=== PATIENT | female | born 1960 | race Caucasian/White ===

== ENCOUNTER 2023-09-25 09:49 | Outpatient (REF) | payer MEDICARE, SELFPAY ==
[2023-09-25 11:33] LABS: Erythrocyte Sedimentation Rate 30 MM/HR (0-20)
[2023-09-26 09:50] LABS: Lyme Abs Screen <0.90 index
[2023-09-26 13:28] LABS: Anti Nuclear Antibody Screen NEGATIVE (NEGATIVE)
== END 2023-09-25 09:50 | disposition home or self-care (01) ==
LOC: HO.LAB 09:49
PROVIDERS: Visit Provider Psychiatry & Neurology Neurology
DX: G93.49 Other encephalopathy (principal)
CPT/HCPCS: 36415; 85652; 86038; 86617; 86618

== ENCOUNTER → 2023-10-27 09:31 | Day surgery (SDC) | payer MEDICARE, SELFPAY ==
--- NOTE | ~2023-10-27 | FL_ITS ---
FLUOROSCOPIC GUIDED LUMBAR PUNCTURE INDICATION: Leukoencephalopathy TECHNIQUE: Risks and benefits and possible complications were discussed with the patient and the consent form was signed. Patient was placed prone on the fluoroscopy table. The back was prepped and draped in routine sterile fashion. Betadine was used as a skin antiseptic. Utilizing fluoroscopic guidance, the L4-5 interlaminar space was accessed with a 22 gauge Bhavesh spinal needle and clear CSF fluid obtained. Opening pressure was 7 cm H20. 8 cc of fluid was sent for analysis. The needle was removed without immediate complications. Total fluoroscopy time: 2.0 minutes min FL/FL guided lumbar puncture LP IMPRESSION: Successful fluoroscopic L4-L5 lumbar puncture This procedure was performed by Rafiq Lott PA-C and supervised by Dr. Roche.
[2023-10-27 09:45] VITALS: BMI 29.0
[2023-10-27 10:12] LABS: MANUAL DIFF FLAG NO
[2023-10-27 10:15] LABS: Basophils Absolute Auto 0.1 X10*3/uL (0.0-0.2); Basophils Percent Auto 0.5 % (0-2); Eosinophils Absolute Auto 0.1 X10*3/uL (0.0-0.4); Eosinophils Percent Auto 1.3 % (0-4); Hematocrit 40.5 % (37.0-47.0); Hemoglobin 13.8 g/dl (12.0-16.0); Imm Gran Abs Auto 0.03 X10*3/uL (0.00-0.03); Imm Gran Pct Auto 0.3 % (0.0-0.4); Lymphocytes Absolute Auto 2.9 X10*3/uL (1.2-4.9); Lymphocytes Percent Auto 30.8 % (20-40); Mean Corpuscular HGB Conc 34.1 g/dl (31.0-35.0); Mean Corpuscular Hemoglobin 32.1 pg (27.0-33.0); Mean Corpuscular Volume 94.2 fL (80.0-98.0); Mean Platelet Volume 9.9 fL (9.4-12.3); Monocytes Absolute Auto 0.6 X10*3/uL (0.1-1.2); Monocytes Percent Auto 6.1 % (2-11); Neutrophils Absolute Auto 5.8 x10*3/uL (2.0-8.3); Platelet Count 308 X10*3/uL (160-400); Red Cell Distribution Width 12.5 % (11.0-16.0); White Blood Count 9.5 X10*3/uL (4.8-10.8)
[2023-10-27 10:20] LABS: INTERNATIONAL NORM RATIO 0.9 (0.9-1.1); Prothrombin Time 11.2 SEC (11.1-13.3)
[2023-10-27 10:23] LABS: Partial Thromboplastin Time 30.7 SEC (26.0-36.8)
[2023-10-27 12:00] VITALS: BP 126/67; PULSE 92; RESP 17; TEMP 36.2; O2SAT 95
[2023-10-27 12:15] VITALS: BP 116/70; PULSE 87; RESP 18; O2SAT 97
[2023-10-27 12:30] VITALS: BP 115/68; PULSE 88; RESP 18; O2SAT 97
[2023-10-27 12:42] VITALS: BP 115/66; PULSE 100; RESP 18; TEMP 36.3; O2SAT 97
[2023-10-27 13:29] LABS: CSF Appearance Clear, Colorless; CSF Tube # 3
[2023-10-27 13:36] LABS: Glucose CSF 68 mg/dL; Total Protein CSF 41.8 mg/dL (15-45)
[2023-10-27 13:37] LABS: Appearance CSF HAZY; CSF Monos 24 %; CSF Tube # 1; Color CSF COLORLESS; Lymphocytes CSF 68 %; Neutrophils CSF 8 %; Red Blood Cell CSF 312 MM*3; White Blood Cell CSF 2 MM*3
[2023-10-27 13:41] LABS: Appearance CSF CLEAR; CSF Monos 8 %; CSF Tube # 4; Color CSF COLORLESS; Lymphocytes CSF 92 %; Red Blood Cell CSF 43 MM*3; White Blood Cell CSF 2 MM*3
[2023-10-28 12:02] LABS: Oligoclonal Serum Yes
[2023-10-31 22:14] LABS: Albumin 4.5 g/dL (3.6-5.1); Albumin, CSF 24.7 mg/dL (8.0-42.0); IgG 1180 mg/dL (600-1540); IgG Synthesis Rate -4.4 mg/24 h (-9.9-3.3); IgG, CSF 2.9 mg/dL (0.8-7.7)
[2023-11-08 19:53] LABS: Oligoclonal Banding Absent (Absent)
== END | disposition home or self-care (01) ==
PROVIDERS: Physician Assistant Surgical; Visit Provider Psychiatry & Neurology Neurology
PROC: 009U3ZZ Drainage of Spinal Canal, Percutaneous Approach (ICD-10-PCS; CPT 62270; principal; 2023-10-27 11:00)
DX: G93.49 Other encephalopathy (principal); R41.9 Unspecified symptoms and signs involving cognitive functions and awareness; G37.9 Demyelinating disease of central nervous system, unspecified
CPT/HCPCS: 36415; 62328; 82042; 82945; 83520; 83916; 84157; 85025; 85610; 85730; 87015; 87070; 87205; 89051

== ENCOUNTER → 2023-10-27 11:05 | Outpatient (BNV) | payer MEDICARE, SELFPAY | PROVIDERS: Visit Provider Physician Assistant Surgical | DX: G93.49 Other encephalopathy (principal) | CPT/HCPCS: 62328 ==

== ENCOUNTER 2025-02-17 09:58 | Outpatient (AMB) | payer MEDICARE, SELFPAY ==
--- NOTE | 2025-02-17 10:04 | A.OFFVIS_ITS ---
Intake Visit Reasons: 6 month Allergies celecoxib (From Celebrex) Allergy (Severe, Verified 10/27/23 09:56) Numbness nitrofurantoin (From Macrobid) Adverse Reaction (Intermediate, Verified 10/27/23 09:56) Gastrointestinal Upset HPI Comments Details: 65 yo woman with depression, chronic tension type headaches treated by Dr. 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 She was prescribed Donepezil and Memantine, which resulted in side effects. She is presenting with concerns regarding memory issues and management of current medications. She reports moments of forgetfulness, questioning whether these are associated with her mild dementia or are an effect of aging. She currently takes Donepezil and Memantine for this condition. She also talked about having brief episodes, which could even wake her up. It was very uncomfortable and she would typically see different type of dark shapes in a noise in her head which was different from her tinnitus. It typically lasted for few sec. there was no associated pain She also experiences tinnitus that affects her sleep, necessitating an [id number] sleep aid. Despite this effort, she often remains awake until late at night. Additionally, the patient suffers from tension headaches and uses Emgality once a month, which helps but doesn?t completely relieve the headaches, necessitating ibuprofen for additional relief. She is on Duloxetine, although the precise reason for its prescription (whether for pain or mood) remains unclear. Her medication history notes past adverse reactions to some treatments initiated while in [place], necessitating adjustments in her current regimen. [facility] Medical History (Updated 02/17/25 @ 10:16 by Daniel Malone MD) Surgery, elective Osteoarthritis Chronic headaches GERD (gastroesophageal reflux disease) HLD (hyperlipidemia) Surgical History (Updated 10/27/23 @ 09:47 by Jenna Sanchez RN) History of hysterectomy History of surgery on lower extremity H/O shoulder surgery History of ear surgery Review of Systems Const Details: - Neurologic: Reports forgetfulness, particularly trouble recalling words mid- sentence. - ENT: Reports tinnitus. - Sleep: Reports disrupted sleep requiring OTC sleep aid. - Other: Reports headaches and ongoing medication adjustments. Physical Exam Neuro Other: Mental Status: Alert and oriented to person, place, and time. Normal attention. Normal spontaneous speech, fluency, and comprehension. Cranial Nerves: CN II: Visual bond full to confrontation, visual acuity intact. CN III, IV, : Pupils equal, round, reactive to light and accommodation. Extraocular movements are normal. CN V: Facial sensation is normal. CN VII: Facial movements symmetrical. CN VIII: Hearing intact to bedside conversation is normal. CN IX, X: Palate elevates symmetrically. CN XI: Shoulder shrug and head turn symmetrical. CN XII: Tongue midline without atrophy or fasciculations. Extrapyramidal: Full facial expressions and blinking. No rigidity. Movements are appropriate with no tremor or abnormality. Speech: Normal; no dysarthria or tremor. Assessment & Plan Assessment & Plan (1) Alzheimer dementia: Comment: Meds tried for dementia: Donepezil. Memantine LP at [facility] in October 2023: OP 7cm, WBCs 2, RBCs 43, Glu 68, Pro 41.8, IgG ind: ok, OCBs: neg. ATI ratio: AD MRI brain WO at [place] in Jul 2023: Mod WM changes suggestive of demyelinating disease MRI brain WWO at [place] [facility] in Mar 2019: >20 b/l supratentorial WM lesions, ?demyelinating disease EEG at office in Aug 2019: WNL Code(s): G30.9 - Alzheimer's disease, unspecified; F02.80 - Dementia in other diseases classified elsewhere, unspecified severity, without behavioral disturbance, psychotic disturbance, mood disturbance, and anxiety Category: Medical Qualifiers: Alzheimer's disease onset: early onset Dementia severity: mild Dementia behavioral or psychological symptom: without behavioral, psychotic, or mood disturbance or anxiety Qualified Code(s): G30.0 - Alzheimer's disease with early onset; F02.A0 - Dementia in other diseases classified elsewhere, mild, without behavioral disturbance, psychotic disturbance, mood disturbance, and anxiety (2) Seizure disorder: Code(s): G40.909 - Epilepsy, unspecified, not intractable, without status epilepticus Category: Medical Plan Impression: a: Mild multifactorial (vascular plus AD dementia) b: Chronic tension type headaches c: Episodes that may be migrainous or seizures Rec: a: Stay active b: Walk a mile or two daily c: No alcohol d: EEG Orders: Orders EEG electroencephalogram Today G40.909 - Epilepsy, unspecified, not intractable, without status epilepticus Coding Level of Care Code Est Pt Level 4 (73943) Diagnoses Mild early onset Alzheimer's dementia without behavioral disturbance, psychotic disturbance, mood disturbance, or anxiety G30.0; F02.A0 Alzheimer's disease onset: early onset Dementia severity: mild Dementia behavioral or psychological symptom: without behavioral, psychotic, or mood disturbance or anxiety Seizure disorder G40.909
--- OUTSIDE RECORDS SUMMARY | 2025-02-17 10:55 | XMS_ITS | Encounter Summary ---
Author Organization [facility] Address [address] [place] [address] Care Team Providers Care Vacuum Evaporation Operator Name Role Phone Vargas Giraldo Primary Care Provider [phone] Reason for Visit * Imaging (Routine) - Authorized Specialty Diagnoses / Procedures Referred By Sancho calloway Referred To Contact Radiology Diagnoses Encounter for screening mammogram for breast cancer Procedures MG Mammo Digital Screening w Ketan bilat MG Mammo Digital Screening w Ketan bilVargas Walker PA [address] [place] [phone] Phone: tel: fax: [facility] Referral ID Status Reason Start Date Expiration Date V isits Requested Visits Authorized [id number] Authorized 03/28/2024 03/28/2025 1 1 Encounter Details Date Type Department Care Team (Latest Contact Info) Description 02/17/2025 10:55 AM EDT Hospital Encounter Radiology Department - [address] [phone] Encounter for screening mammogram for breast cancer Social History Tobacco Use Types Packs/Day Years [...] your loved ones. For example, early childhood education coordinator or elderly care for an older adult? [...] on file documented as of this encounter Plan of Treatment Upcoming Encounters Date Type Department Care Team (Late st Contact Info) Description 03/05/2025 10:45 AM EDT Office Visit Adult Medicine [facility] [address] [place] [phone] Vargas Giraldo PA [address] [place] [phone] Pending Results Name Type Priority Associated Diagnoses Date /Time MG Mammo Digital Screening w Ketan bilat Imaging Routine Encounter for screening mammogram for breast cancer 02/17/2025 11:05 AM EDT Scheduled Orders Name Type Priority Associated Diagnoses Orde r Schedule MG Mammo Digital Screening w Ketan bilat Imaging Routine Encounter for screening mammogram for breast cancer Once for 1 Occurrences starting 02/17/2025 until 02/17/2025 documented as of this encounter Visit Diagnoses Diagnosis Encounter for screening mammogram for breast cancer documented in this encounter Additional Health Concerns Assessment Noted Time PHQ-9 Depression Total Score: 2 08/29/19 25 5:18 PM EDT A fall risk assessment has been complete d for the patient 10/09/2024 2:58 PM EDT documented as of this encounter Care Teams Vacuum Evaporation Operator Relationship Specialty Start Date End Date Vargas Giraldo PA [address] [place] [phone] PCP - General Internal Medicine 04/24/24 documented as of this encounter
--- OUTSIDE RECORDS SUMMARY | 2025-02-17 11:42 | XMS_ITS ---
[facility] Name [facility] History of Medication Use Medication Directions Dispensed Refills Start Date End Date Stat us Aller-Chelsi 10 mg tablet TAKE ONE TABLET B Y MOUTH ONCE DAILY 04/16/2024 active levothyroxine (SYNTHROID, LEVOTHROID) 112 mcg tablet TAKE ONE TABLET BY MOUTH ONCE DAILY 04/16/2024 active gabapentin (NEURONTIN) 300 mg capsule Take 3 Capsules by mouth at bedtime. 09/20/2023 active cyanocobalamin (VITAMIN B-12) 1,000 mcg tablet Take 1 tablet (1,000 mcg total) by mouth 1 (one) time each day. 08/08/2023 active DULoxetine (CYMBALTA) [address] capsule Take 1 capsule (30 mg total) by mouth 1 (one) time each day. 02/23/2022 active busPIRone (BUSPAR) 7.5 mg tablet Take 1 Tablet by mouth 2 times daily. - Oral active Allergies Allergen Reaction Severity Comment Documented Date Source Statu s PHENTERMINE DIZZINESS 08/02/2023 [facility] acti ve NITROFURANTOIN MONOHYD/M-CRYST vomiting 02/28/2020 [facility] active CELECOXIB Other Reaction(s): Numbness, tingling or swelling of the lips, tongue or mouth 08/18/2009 [facility] active Problems Problem Status Onset Date Problem Type Date of Resolution Source Vitamin B12 deficiency active 2023-08-08 ProblemAct [facility] Obstructive sleep apnea active 2018-11-28 ProblemAct [facility] Urge incontinence active 2023-05-22 ProblemAct [facility] Hypothyroidism active 2024-03-20 ProblemAct [facility] Stress incontinence active 2024-03-20 ProblemAct [facility] Generalized anxiety disorder active 2015-06-01 ProblemAct [facility] Cervical radiculitis active 2018-06-08 ProblemAct [facility] MRSA (methicillin resistant staph aureus) culture positive active 2021-10-11 ProblemAct [facility] Primary osteoarthritis of both knees active 2018-08-20 ProblemAct [facility] Rib pain on left side active 2021-02-26 ProblemAct [facility] Fatty liver active 2021-08-23 ProblemAct [facility]I Urgency of urination active 2023-05-22 ProblemAct [facility] Tinnitus of both ears active 2015-02-05 ProblemAct [facility] Frequency of urination active 2023-05-22 ProblemAct [facility] Major depressive disorder, recurrent, moderate active 2015-06-01 ProblemAct [facility] Compression fracture of T12 vertebra active 2015-01-15 ProblemAct [facility] Osteopenia active 2023-03-08 ProblemAct [facility] Hyperlipidemia active 2008-08-12 ProblemAct [facility] Actinic keratosis active 2009-08-18 ProblemAct [facility] Chronic tension headaches active 2008-04-18 ProblemAct [facility] Varicose veins of both lower extremities active 2021-02-26 ProblemAct [facility] Primary osteoarthritis of both hands active 2018-08-20 ProblemAct [facility] Obese active 2018-12-17 ProblemAct [facility] GERD (gastroesophageal reflux disease) active 2024-03-20 ProblemAct [facility] Calcific tendinitis of right shoulder active 2017-11-27 ProblemAct [facility] Insomnia active 2008-04-18 ProblemAct [facility] Irritable bowel syndrome active 2024-03-20 ProblemAct [facility] Encounter for screening mammogram for breast cancer active EncounterDiagnosisAct C [facility] Medial epicondylitis of left elbow active 2017-05-23 ProblemAct [facility] Immunizations Vaccine Date Source Lot Number Status Influenza trivalent, 0.5mL ( Fluzone High-dose) 65yo and older 03/01/2023 [facility] [id number] comple reyes Pneumococcal conjugate 20 va lent (Prevnar 20, PCV 20) 2mo and older 03/01/2023 [facility] [id number] comple reyes Influenza Quadravalent, MDCK , 0.5ml, preservative free (Flucelvax) 6mo and older 02/23/2022 [facility] [id number] completed Influenza Quadravalent, MDCK , 0.5ml, preservative free (Flucelvax) 6mo and older 02/26/2021 [facility]KATH[facility] [id number] completed Influenza, Unspecified 02/18/2020 [facility] co mpleted Zoster recombinant (Shingrix ) 19yo and older 09/19/2019 [facility] [id number] completed Zoster recombinant (Shingrix ) 19yo and older 07/05/2019 [facility] [id number] completed Td Tetanus diptheria (Tdvax) 7yo and older 11/15/2018 [facility] [id number] completed Influenza, Unspecified 04/10/2018 [facility]KATH[facility] co mpleted Influenza trivalent, 0.5mL ( Fluzone High-dose) 65yo and older 03/22/2016 [facility] [id number] comple reyes Influenza trivalent, with pr eservative (Fluzone; Afluria) 6mo and older 03/26/2015 [facility] completed Influenza trivalent, with pr eservative (Fluzone; Afluria) 6mo and older 04/22/2013 [facility] [id number] completed Influenza trivalent, with pr eservative (Fluzone; Afluria) 6mo and older 04/12/2011 [facility] [id number] completed Influenza trivalent, with pr eservative (Fluzone; Afluria) 6mo and older 03/04/2010 [facility] [id number] completed Influenza trivalent, with pr eservative (Fluzone; Afluria) 6mo and older 05/17/2009 [facility] [id number] completed Tdap Tetanus diptheria acell ular pertussis (Boostrix; Adacel) 7yo and older 08/12/2008 [facility] [id number] completed Encounters Encounter Type Encounter Reason Primary Diagnosis Location Date Ambulatory Pain, unspecified Pain, unspecified [facility] 05/30/2023 Care Team Organization Name Specialty Phone Email Start Date End Da te [facility] ACO 01/29/2025 [facility] 11/19/2024 [facility] Organization [facility] 04/19/2022 01/29/2024 [facility]
--- OUTSIDE RECORDS SUMMARY | 2025-02-17 11:42 | XMS_ITS | Patient Health Record ---
Author Organization [facility] Address [address] [address] Support Name Relationship Address Phone KINGSTON BOURGEOIS Guarantor Unknown [phone] Reason For Referral No Information Medications Medication SIG (Take, Route, Fr equency, Duration) Notes Start Date End Date Status Tylenol Arthritis Pain ORAL daily; Duration: -3 [facility] [place]- Active VESIcare 5MG 1 ORAL daily; Duration: -3 [facility] [place]- 06/11/2012 Active Calcium-Carb 600 + D 1 ORAL daily; Duration: -3 [facility] [place]- Active Nabumetone 500MG 2 ORAL daily; Duration: -3 [facility] [place]- 2010 Active Levoxyl 75MCG 1 ORAL DAILY; Duration: -3 [facility] [place]- 2 Active Simvastatin 40MG 1 ORAL daily; Duration: -3 [facility] [place]- 2010 Active PriLOSEC OTC 40MG 1 ORAL twice daily; Duration: -3 [facility] [place]- 06/11/2012 Active Problems Problem Type SNOMED Code ICD Code Onset Dates Problem Status W/U Status Risk Notes Problem Esophageal reflux (375465600) Esophageal reflux (530.81) Active confirmed Major Problem Irritable bowel syndrome (21264179) Irritable bowel syndrome (564.1) Active confirmed Major Problem Menopausal symptom (28900948) Symptomatic menopausal or female climacteric states (627.2) Active confirmed Diag Problem Osteoarthritis (821190789) Osteoarthrosis, unspecified whether generalized or localized, unspecified site (715.90) Active confirmed Major Problem Headache (40468992) Headache (784.0) Active confirmed Major Problem Urinary incontinence (194649999) Unspecified urinary incontinence (788.30) Active confirmed Major Problem Gynecological examination normal (815801646579693) Routine gynecological examination (V72.31) Active confirmed Major Problem Exercises teaching, guidance, and counseling (079399430) Exercise counseling (V65.41) Active confirmed Diag Problem Screening for malignant neoplasm of colon (741992009) Special screening for malignant neoplasms, colon (V76.51) Active confirmed Major Plan Of Treatment No Information Insurance Providers Payer Name Payer Address Payer Phone Subscriber Number Group Number Insured Name Patient Relationship to Insured Coverage Start Date Coverage End Date [employer] [address] [address] [facility] [place] [address] [id number] KINGSTON BOURGEOIS Self - patient is the insured [facility] [address] [place] [address] [id number] KINGSTON BOURGEOIS Self - patient is the insured
--- OUTSIDE RECORDS SUMMARY | 2025-02-17 11:42 | XMS_ITS | Clinical Summary ---
Author Organization [facility] Address [address] [place] [address] Care Team Providers Care Cooper Helper Name Role Phone Vargas Giraldo PA-C Primary Care Provider Allergies Active Allergy Reactions Criticality Noted Date Comments Celecoxib 05/25/2023 Nitrofurantoin 05/25/2023 Medications Medication Sig Dispensed Refills Start Date End Date Status omeprazole (PriLOSEC) 20 MG capsule Take 1 capsule (20 mg total) by mouth daily. 0 Active levothyroxine (SYNTHROID) tablet 112 mcg Take 1 tablet (112 mcg total) by mouth every morning on an empty stomach. 0 Active DULoxetine (CYMBALTA) DR capsule 60 mg Take 1 capsule (60 mg total) by mouth daily. 0 Active Meloxicam 15 MG TBDP Take 15 mg by mouth daily. 0 Active solifenacin (VESIcare) 10 MG tablet Take 0.5 tablets (5 mg total) by mouth daily. 0 Active gabapentin (NEURONTIN) 300 MG capsule Take 1 capsule (300 mg total) by mouth every night at bedtime. 0 Active simvastatin (ZOCOR) tablet 40 mg Take 1 tablet (40 mg total) by mouth every night at bedtime. 0 Active Cetirizine HCl (ZYRTEC ALLERGY PO) Take by mouth daily. 0 Active Calcium Citrate-Vitamin D (CITRACAL + D PO) Take by mouth. 0 Act rupert Cholecalciferol (VITAMIN D3 PO) Take by mouth. 0 Activ e TURMERIC PO Take by mouth. 0 Active Galcanezumab-gnlm (EMGALITY SC) Inject under the skin. 0 Active acetaminophen (TYLENOL) 325 MG tablet Take 3 tablets (975 mg total) by mouth every 8 (eight) hours as needed for pain. 120 tablet 0 05/30/2023 Active Active Problems Problem Noted Date Diagnosed Date Urge incontinence 05/22/2023 Frequency of urination 05/22/2023 Urgency of urination 05/22/2023 Social History Tobacco Use Types Packs/Day Years Used Date Smoking Tobacco: Never Smokeless Tobacco: Never Tobacco Cessation:Counseling Given: Not Answered Alcohol Use Standard Drinks/Week Comments Not Currently 0 (1 standard drink = 0.6 oz pur e alcohol) Sex and Gender Information Value Date Recorded Sex Assigned at Not on file Gender Identity Not on file Sexual Orientation Not on file Job Start Date Occupation Industry Not on file Not on file Not on file Last Filed Vital Signs Vital Sign Reading Time Taken Comments Blood Pressure 115/75 05/30/2023 3:30 PM EST Pulse 95 05/30/2023 3:30 PM EST Temperature 36.3 C (97.3 F) 05/30/2023 3:00 PM EST Respiratory Rate 14 05/30/2023 3:30 PM EST Oxygen Saturation 96% 05/30/2023 3:30 PM EST Inhaled Oxygen Concentration - - Weight 77.6 kg (171 lb) 05/25/2023 9:42 AM EST Height 161.3 cm (5' 3.5 ) 05/25/2023 9:42 AM EST Body Mass Index 29.82 05/25/2023 9:42 AM EST Plan of Treatment Health Maintenance Due Date Last Done Comments Hepatitis C Screening 1960 Depression Screening 1970 Preventative Health Evaluation 01/19/1976 Colon Cancer Screening (Colonoscopy) 2003 Breast Cancer Screening (Mammogram) 01/19/2008 DTap / Tdap / Td (2 - Td or Tdap) 08/12/2018 08/12/2008 Fall Risk Assessment 2023 Osteoporosis Screening (DEXA Scan) 2023 COVID-19 Vaccine ( season) 2025 09/26/2021, 03/09/2021, 08/31/2020, Additional history exists Influenza Vaccine (#1) 2025 3, 02/23/2022, 02/26/2021, Additional history exists RSV Adult > 60+ Yrs or (1 - 1-dose 75+ series) 2033 Shingrix-Zoster Vaccine Completed 09/19/2019, 07/05 Pneumococcal Vaccine Completed 03/01/2023 Hepatitis B Vaccines Aged Out No long er eligible based on patient's age to complete this topic RSV Ped < 20 months Aged Out No longe r eligible based on patient's age to complete this topic Medical Devices Implanted Type Area Physician Office Nurse Device Identifier Shelf Expiration Date Model / Serial / Lot Rechargeable R20 Neurostimulator Axid-[facility] [id number] - [id number] Implanted:Qty: 1 on 05/30/2023 by Tana Ro MD at [facility] [place] and Med N/A: Sacrum [employer] 10/26/2025 [id number] / [id number] / ++Dnu+[id number] No Rplc Kit Ld Tined Quad Sns Interstim Medt-Neur [id number] - [id number] Implanted:Qty: 1 on 05/30/2023 by Tana Ro MD at [facility] [place] and Med N/A: Sacrum [employer] 10/11/2025 [id number] / [id number] / Sling Transvaginal Advantage Fit Blue Bsci-Micr [id number] - [id number] Implanted:Qty: 1 on 05/30/2023 by Tana Ro MD at [facility] [place] and Med N/A: Urethra [facility] GYNECOLGY 02/13/2026 [id number] / / [id number] Care Teams Cooper Helper Relationship Specialty Start Date End Date Vargas Giraldo, PAMichaelC PCP - General Medical Services 05/26/23
--- OUTSIDE RECORDS SUMMARY | 2025-02-17 11:42 | XMS_ITS | Clinical Summary ---
Author Organization [facility] Address [address] [place] [address] Phone Care Team Providers Care Coat Operator Insulator Name Role Phone Vargas Giraldo Primary Care Provider [phone] Allergies Active Allergy Reactions Criticality Noted Date Comments Celecoxib 08/18/2009 Other Reaction(s): Numbness, tingling or swelling of the lips, tongue or mouth Nitrofurantoin Monohyd/M-Cryst 02/28/2020 vomiting Phentermine Dizziness 08/02/2023 Medications meloxicam (MOBIC) 15 mg tablet Take 1 Tablet by mouth daily. 4 Active cyanocobalamin (VITAMIN B-12) 1,000 mcg tablet Take 1 tablet (1,000 mcg total) by mouth 1 (one) time each day. 4 Active galcanezumab-gnlm (Emgality Syringe) 120 mg/mL syringe 3 Active CALCIUM CARBONATE ORAL Calcium Carbonate-Hellen min D (CALCIUM 500 + D OR Take by mouth 3 times daily. Active cholecalciferol (VITAMIN D-3) 25 mcg (1,000 unit) capsule Take 1 Cap by mouth daily. Active busPIRone (BUSPAR) 7.5 mg tablet Take 1 Tablet by mouth 2 times daily. - Oral Active UNABLE TO FIND KLS Aller-Chelsi 10 MG tablet TAKE ONE TABLET BY MOUTH ONCE DAILY Active triamcinolone (NASACORT) 55 mcg nasal inhaler Administer 2 sprays into each nostril 1 (one) time each day. 10.8 mL 11 5 07/08/19 26 Active cetirizine (Aller-Chelsi) 10 mg tablet Take 1 tablet (10 mg total) by mouth 1 (one) time each day. 90 tablet 5 Active atorvastatin (LIPITOR) 20 mg tablet Take 1 tablet (20 mg total) by mouth 1 (one) time each day. 4 Active gabapentin (NEURONTIN) 300 mg capsule Take 3 capsules (900 mg total) by mouth at bedtime. at bedtime 270 capsule 1 5 Active betamethasone dipropionate (DIPROSONE) 0.05 % cream Apply topically 2 (two) times a day if needed for irritation or rash. 45 g 11 5 Active levothyroxine (SYNTHROID, LEVOTHROID) 112 mcg tablet Take 1 tablet (112 mcg total) by mouth one time each day. 90 tablet 1 5 Active DULoxetine (CYMBALTA) [address] capsule Take 3 capsules (90 mg total) by mouth 1 (one) time each day. Do not crush or chew. 270 each 3 5 Active Active Problems Problem Noted Date Diagnosed Date Mild early onset Alzheimer's dementia ([facility] V24, [facility] V28) 08/29/2024 Assessment & Plan (10/09/2024 3:25 PM EDT): GERD (gastroesophageal reflux disease) 4 Hypothyroidism 03/20/2024 Assessment & Plan (10/09/2024 3:25 PM EDT): Irritable bowel syndrome 03/20/2024 Overview (03/20/2024): Negative colonoscopy 2006 Stress incontinence 03/20/2024 Overview (03/20/2024): Status post bladder suspension surgery Vitamin B12 deficiency 08/08/2023 Assessment & Plan (10/09/2024 3:25 PM EDT): Frequency of urination 05/22/2023 Urge incontinence 05/22/2023 Urgency of urination 05/22/2023 Osteopenia 03/08/2023 MRSA (methicillin resistant staph aureus) cultur e positive 10/11/2021 Fatty liver 08/23/2021 Assessment & Plan (10/09/2024 3:25 PM EDT): Rib pain on left side 02/26/2021 Varicose veins of both lower extremities 021 Obese 12/17/2018 Obstructive sleep apnea 11/28/2018 Overview (03/20/2024): [facility] Home Sleep Apnea Test: Date 11/26/2018; Wt 172#; BMI 29; STAR 16, AI 1; HI 15; Unclassified apneas 0; Obstructive apneas 7; Central apneas 0; Mixed apneas 0; hypopneas 107; average oxygen saturation 93% (lowest 80% without saturations <88% for 5% or more of study) - Obstructive Sleep Apnea - moderate; mostly hypopneas; without sleep related hypoventilation by 2019 home polysomnogram. Assessment & Plan (10/09/2024 3:25 PM EDT): Primary osteoarthritis of both hands 08/20/2018 Primary osteoarthritis of both knees 08/20/2018 Cervical radiculitis 06/08/2018 Calcific tendinitis of right shoulder 11/27/2017 Overview (03/20/2024): 08/28/2017 Depo Medrol 80 mg injection 11/27/2017 Kenalog 40 mg injection Medial epicondylitis of left elbow 05/23/2017 Overview (03/20/2024): 08/28/2017 Depo Medrol 20 mg injection 11/27/2017 Kenalog 20 mg injection Last Assessment & Plan: 08/28/2017 - depo-medrol 20 mg injection Generalized anxiety disorder 06/01/2015 Major depressive disorder, r ecurrent, moderate (CMS/HCC V24, CMS/HCC V28) 06/01/2015 Assessment & Plan (10/09/2024 3:25 PM EDT): Tinnitus of both ears 02/05/2015 Compression fracture of T12 vertebra ([facility] V24, [facility] V28) 01/15/2015 Actinic keratosis 08/18/2009 Overview (03/20/2024): Actinic Keratosis ( pre-cancers followed by Dr. Simmons ) Hyperlipidemia 08/12/2008 Assessment & Plan (10/09/2024 3:25 PM EDT): Chronic tension headaches 04/18/2008 Insomnia 04/18/2008 Encounters Date Type Department Care Team Description 02/17/2025 10:55 AM EDT Hospital Encounter Radiology Department - [address] [phone] Encounter for screening mammogram for breast cancer from Last 3 Months Immunizations Name Administration Dates Next Due Influenza Quadravalent, MDCK , 0.5ml, preservative free (Flucelvax) 6mo and older 02/23/2022,02/26/2021 Influenza trivalent, 0.5mL ( Fluzone High-dose) 65yo and older 03/01/2023,03/22/2016 Influenza trivalent, with preservative (Fluzone; Afluria) 6mo and older 03/26/2015,04/22/2013,04/12/2011,2009,05/17/2009 Influenza, Unspecified 02/18/2020,04/10/2018 Pneumococcal conjugate 20 va lent (Prevnar 20, PCV 20) 2mo and older 03/01/2023 RSV, bivalent, protein subun it RSVpreF, 0.5mL, Preservative Free (ABRYSVO) 60yo and older or 32 through 36 wks of 06/16/2023 Td Tetanus diptheria (Tdvax) 7yo and older 11/15/2018 Tdap Tetanus diptheria acell ular pertussis (Boostrix; Adacel) 7yo and older 08/12/2008 Zoster recombinant (Shingrix ) 19yo and older 09/19/2019,07/05/2019 Surgical History Surgery Date Site/Laterality Comments HYSTERECTOMY PROCEDURE: HISTORICAL HYSTERECTOMY; COMMENT: still has ovaries COLONOSCOPY 11/22/2005 PROCEDURE: HISTORICAL COLONOSCOPY; COMMENT: Dr. Buck, [facility]. Minor rectal bleed. Small ulcerated area bx'd. SHOULDER SURGERY PROCEDURE: CA UNLISTED PROCEDURE SHOULDER; COMMENT: bilateral, twice on right TUBAL LIGATION PROCEDURE: HISTORICAL TUBAL LIGATION BLADDER SURGERY 2005 PROCEDURE: HISTORICAL BLADDER SURGERY; COMMENT: 2005 FOOT SURGERY 2010 PROCEDURE: HISTORICAL FOOT SURGERY; COMMENT: 09/2010 bone spur ANKLE SURGERY 2010 PROCEDURE: HISTORICAL ANKLE SURGERY; COMMENT: x2 ruptured achilles tendon 12/20 COLONOSCOPY 08/17/2015 PROCEDURE: HISTORICAL COLONOSCOPY; COMMENT: 5 mm cecal polyp: SSA. COLONOSCOPY 09/07/2020 PROCEDURE: HISTORICAL COLONOSCOPY; COMMENT: Diverticulosis ascending colon, no polyps, repeat in 7 to 10 years. BREAST BIOPSY Left PROCEDURE: BX BREAST; PERC NEEDLE CORE W/IMAG GUID; COMMENT: stereo bx 2021 fibroadeonoma OTHER SURGICAL HISTORY 05/30/2023 N/A PROCEDURE: CA SLING OPERATION STRESS INCONTINENCE; COMMENT: Retropubic miduretheral sling; Axonics neurostim placement Medical History Medical History Date Comments Irritable bowel syndrome DX:Irri table bowel syndrome Hypothyroidism DX:Hypothyroidis m DA (degenerative arthritis) DX:D A (degenerative arthritis) Allergic rhinitis DX:Allergic rh initis GERD (gastroesophageal reflux disease) DX:GERD (gastroesophageal reflux disease) Stress incontinence DX:Stress in continence Family history of malignant neoplasm of gastrointestinal tract 10/29/2008 DX:Family history of maligna nt neoplasm of gastrointestinal tract; COMMENT: Second-degree relatives x 2. Negative colonoscopy 11/22/2005, next colonoscopy indicated 2015. Actinic keratosis, hx of DX:Acti fay keratosis, hx of History of vitamin D deficiency 07/02/2014 DX:History of vitamin D deficiency Family History Medical History Relation Name Comments Colon cancer Aunt paternal over 50 Lung cancer Father Hypertension, p rostate issues, COPD, liver disease Diabetes Mother Heart attack Mother years of angina Breast cancer Other mat cousin older than 45 - maybe 60s Heart attack Paternal Grandfather Colon cancer Paternal Grandmother over 50 Thyroid disease Sister 1 Other: rheumatoid arthritis Sister 2 Relation Name Status Comments Aunt paternal Father Alive htn, lung cance r, liver disease, not etoh Mother (Age 77) cad, dm Other mat cousin Paternal Grandfather (Age 70's) cad Paternal Grandmother (Age 60's) colon cancer Sister 1 Sister 2 Social History Tobacco Use Types Packs/Day Years Used Date Smoking Tobacco: Never Smokeless Tobacco: Never Tobacco Cessation:Counseling Given: Not Answered Alcohol Use Standard Drinks/Week Comments Yes 0 [...] care for your loved ones. For example, children's counselor or elderly care for an older adult? [...] AM EST Sexual Orientation Not on file Obstetrics History Para Term AB IAB SAB Ectopic Multiple Livin g Live Births 3 3 3 0 0 1 3 3 Date Outcome GA Total Labor Labor/2nd/3rd Weight Sex Type Anes PTL Kelly A1 A5 Name Clin Term Vag-S pont Living Term Vag-S pont Living Term Vag-S pont Living Term Last Filed Vital Signs Vital Sign Reading Time Taken Comments Blood Pressure 123/70 10/28/2024 4:58 PM EDT Pulse 93 10/28/2024 4:58 PM EDT Temperature 35.8 C (96.4 F) 10/28/2024 4:58 PM EDT Respiratory Rate 16 10/28/2024 4:58 PM EDT Oxygen Saturation 98% 10/28/2024 4:58 PM EDT Inhaled Oxygen Concentration - - Weight 81.6 kg (179 lb 12.8 oz) 10/28/2024 4:58 PM EDT Height 162.6 cm (5' 4 ) 10/28/2024 4:58 PM EDT Body Mass Index 30.86 10/28/2024 4:58 PM EDT Plan of Treatment Upcoming Encounters Date Type Department Care Team (Late st Contact Info) Description 03/05/2025 10:45 AM EDT Office Visit Adult Medicine [address] [phone] Vargas Giraldo PA [facility] [place] [address] Health Maintenance Due Date Last Done Comments Hepatitis A Vaccines (1 of 2 - Risk 2-dose series) 1977 Hepatitis B Vaccines (1 of 3 - Risk 3-dose series) 2018 COVID-19 Vaccine (8 - Pfizer risk ) 02/10/2025 02/15/2024, 03/14/2023, 03/10/2022, Additional history exists Influenza Vaccine (#1) 2025 , 03/01/2023, 02/23/2022, Additional history exists Social Influencers of Health Screening 10/08/2025 10/08/2024 Falls Risk Assessment 10/09/2025 10/09/2024, 024 Medicare Annual Wellness Visit 10/09/2025 10/09/2024 Breast Cancer Screening 02/08/2026 02/09/20 24, 02/09/2024, 02/01/2023, Additional history exists Colorectal Cancer Screening: Colonoscopy 09/08/2027 09/07/2020 DTaP,Tdap,and Td Vaccines (3 - Td or Tdap) 11/15/2028 11/15/2018, 08/12/2008 Cholesterol Screening (Lipid Panel) 04/26/2029 04/26/2024, 02/09/2024, 02/09/2024 Osteoporosis Screening (Bone Density Screening) 03/08/2033 03/08/2023 Zoster Vaccines Completed 09/19/2019, 07/05/2019 Hepatitis C Screening Completed 08/17/2021 Pneumococcal Vaccine: 50+ Years Completed 03/01/2023 RSV Immunization Adult Patients Completed 06/16/2023 Depression Screening Completed 10/08/2024 HIB Vaccines Aged Out No longer eligi ble based on patient's age to complete this topic HPV Vaccines Aged Out No longer eligi ble based on patient's age to complete this topic IPV Vaccines Aged Out No longer eligi ble based on patient's age to complete this topic MMR Vaccines Aged Out No longer eligi ble based on patient's age to complete this topic Meningococcal ACWY Vaccine Aged Out N o longer eligible based on patient's age to complete this topic Meningococcal B Vaccine Aged Out No l onger eligible based on patient's age to complete this topic RSV Immunization Patients Under 20 months Aged Out No longer eligible based on patient's age to complete this topic Varicella Vaccines Aged Out No longer eligible based on patient's age to complete this topic Medical Devices Implanted Type Area Brake Holder Device Identifier Shelf Expiration Date Model / Serial / Lot Rechargeable R20 Neurostimulator [facility] [id number] - [id number] Implanted:Qty: 1 on 05/30/2023 by Tana Ro MD N/A: Sacrum [employer] 10/26/2025 [id number] / [id number] / ++Dnu+Disc No Rplc Kit Ld Tined Quad Sns Interstim Medt-Neur [id number] - [id number] Implanted:Qty: 1 on 05/30/2023 by Tnaa Ro MD N/A: Sacrum [employer] 10/11/2025 [id number] / [id number] / Sling Transvaginal Advantage Fit Blue Bsci-Micr [id number] Implanted:Qty: 1 on 05/30/2023 by Tana Ro MD N/A: Urethra [employer]GYNECOL GY 02/13/2026 [id number] / / [id number] Procedures Procedure Name Priority Date/Time Associated Diagnosis Comments LIPID PANEL WITH REFLEX TO DIRECT LDL Routine 04/26/2024 12:57 PM EST Hyperlipemia SCREENING MAMMOGRAPHY BI 2-VIEW BREAST INC CAD Routine 02/09/2024 11:27 AM EDT Encounter for screening mammogram for malignant neoplasm of breast FALLS RISK ASSESSMENT Routine 02/09/2024 DXA BONE DENSITY STUDY 1+ SITS AXIAL SKEL Routine 03/08/2023 11:31 AM EDT Encounter for immunization Fatty (change of) liver, not elsewhere classified Other obesity due to excess calories Body mass index (BMI) 30.0-30.9, adult Obstructive sleep apnea (adult) (pediatric) Generalized anxiety disorder Major depressive disorder, recurrent, moderate (CMS/HCC V24, CMS/HCC V28) Hyperlipidemia, unspecified Hypothyroidism, unspecified Gastro-esophageal reflux disease without esophagitis HEPATITIS C SCREENING Routine 08/17/2021 COLONOSCOPY Routine 09/07/2020 from Last 3 Months or Most Recently Relevant to Health Maintenance Results * (ABNORMAL) Lipid panel with reflex to direct LDL (04/26/2024 12:57 PM EST) Cholesterol 168 0 - 200 mg/dL LAB CHEMISTRY METHOD 04/26/2024 6:25 PM EST [facility] Triglycerides 199(H) 0 - 150 mg/dL LAB CHEMISTRY METHOD 04/26/2024 6:25 PM EST [facility] HDL 56 >=40 mg/dL LAB CHEMISTRY METHOD 04/26/2024 6:25 PM EST [facility] LDL Calculated 72 0 - 100 mg/dL LAB CHEMISTRY METHOD 04/26/2024 6:25 PM [facility] VLDL Cholesterol Celso 39.8 mg/dL LAB CHEMISTRY METHOD 04/26/2024 6:25 PM EST [facility] Non HDL Chol. (LDL+VLDL) 112 <145 mg/dL LAB CHEMISTRY METHOD 04/26/2024 6:25 PM EST [facility] Chol/HDL Ratio 3.0 0.0 - 4.4 LAB CHEMISTRY METHOD 04/26/2024 6:25 PM [facility] Blood Venous blood specimen / Unknown Venipuncture / Unknown 04/26/2024 12:57 PM EST 04/26/2024 12:57 PM EST Vargas MONCADA LAB BLOOD ORDERABLES Lori l Result [facility] [address] [place] [address], * SCREENING MAMMOGRAPHY BI 2-VIEW BREAST INC CAD (02/09/2024 11:27 AM EDT) Anatomical Region Laterality Modality Radiographic Marzena ging 02/01/2023 10:1 4 AM EDT Narrative 02/09/2024 5:07 PM EDT This is a summary report. The complete report is available in the patient's medical record. If you cannot access the medical record, please contact the sending organization for a detailed fax or copy. Study: SCREENING MAMMOGRAPHY BI 2-VIEW BREAST INC CAD Technique: Bilateral full-field digital screening mammography is obtained and read in conjunction with computer aided detection. Tomosynthesis as well as 2D C-View imaging were obtained. Comparison: Comparison made to multiple priors, most recent February 01, 2023, and most remote July 07, 2014. Breast composition: There are scattered areas of fibroglandular density. Right breast: No suspicious masses, suspicious calcifications or other abnormalities are seen. Left breast: Tissue marker from previous needle core biopsy. No suspicious masses, suspicious calcifications or other abnormalities are seen. IMPRESSION: Impression: Bilateral breasts: Benign, no specific mammographic evidence of malignancy. Normal interval follow-up is recommended in 12 months. BI-RADS: Category 2: Benign [facility] [address] [place] [id number] [phone] Procedure Note Diana Love MD - 04/02/2024 This is a summary report. The complete report is available in thepatient's medical record. If you cannot access the medical record, pleasecontact the sending organization for a detailed fax or copy. Study: SCREENING MAMMOGRAPHY BI 2-VIEW BREAST INC CAD Technique: Bilateral full-field digital screening mammography is obtainedand read in conjunction with computer aided detection. Tomosynthesis aswell as 2D C-View imaging were obtained. Comparison: Comparison made to multiple priors, most recent January, and most remote July 07, 2014. Breast composition: There are scattered areas of fibroglandular density. Right breast: No suspicious masses, suspicious calcifications or otherabnormalities are seen. Left breast: Tissue marker from previous needle core biopsy. Nosuspicious masses, suspicious calcifications or other abnormalities areseen. IMPRESSION: Impression: Bilateral breasts: Benign, no specific mammographic evidence ofmalignancy. Normal interval follow-up is recommended in 12 months. BI-RADS: Category 2: Benign [facility] [address] [place] [id number] [phone] Vargas MONCADA IMG XR PROCEDURES Final R esult * Hm Falls Risk Assessment (02/09/2024) [facility] Falls Risk Assessment abstracted Historical Provider MD HEALTH MAINTENANCE Final Result * DXA BONE DENSITY STUDY 1+ SITS AXIAL SKEL (03/08/2023 11:31 AM EDT) Anatomical Region Laterality Modality Bone Densitometr y 03/01/2023 11:1 5 AM EDT Narrative 03/08/2023 7:59 PM EDT STUDY: DUAL ENERGY X-RAY ABSORPTIOMETRY / DXA REASON FOR EXAM: Female, 63 years old. menopausal/postmenopausal disorder TECHNIQUE: Bone Mineral Density (BMD) measurements of the lumbar spine and left hip were obtained. COMPARISON: None FINDINGS: L1-L4 T score: -0.9. This corresponds to Normal bone density. Left femoral neck T score: -1.3. This corresponds to osteopenia. Left total hip T score: -0.7. This corresponds to osteopenia. FRAX score: 10 year risk of major osteoporotic fracture Major 7.9 %, 10 year risk of hip fracture Hip 0.6 % IMPRESSION: IMPRESSION: Osteopenia Reference Information: The T-score is the number of standard deviations above or below the standard which is normal for young adults at their peak bone mineral density. The World Health Organization (WHO) interprets the T-scores as follows: Above -1 Normal bone density Between -1 and -2.5 Osteopenia Equal to / or below -2.5 Osteoporosis As a practical clinical guideline, osteopenia may be graded as follows: Mild -1 through -1.5 Moderate -1.6 through -2.0 Severe -2.1 through -2.4 References: 1. NIH Osteoporosis and Related Bone Diseases http://www.osteo.org 2. International Society for Clinical Densitometry http://www.iscd.org 3. National Osteoporosis Foundation http://www.nof.org Procedure Note Diana Love MD - 07/18/2023 STUDY: DUAL ENERGY X-RAY ABSORPTIOMETRY / DXA REASON FOR EXAM: Female, 63 years old. menopausal/postmenopausaldisorder TECHNIQUE: Bone Mineral Density (BMD) measurements of the lumbar spineand left hip were obtained. COMPARISON: None FINDINGS: L1-L4 T score: -0.9. This corresponds to Normal bone density. Left femoral neck T score: -1.3. This corresponds to osteopenia. Left total hip T score: -0.7. This corresponds to osteopenia. FRAX score: 10 year risk of major osteoporotic fracture Major 7.9 %, 10year risk of hip fracture Hip 0.6 % IMPRESSION: IMPRESSION: Osteopenia Reference Information: The T-score is the number of standard deviations above or below thestandard which is normal for young adults at their peak bone mineral density. The World HealthOrganization (WHO) interprets the T-scores as follows: Above -1 Normal bone density Between -1 and -2.5 Osteopenia Equal to / or below -2.5 Osteoporosis As a practical clinical guideline, osteopenia may be graded as follows: Mild -1 through -1.5 Moderate -1.6 through -2.0 Severe -2.1 through -2.4 References: 1. NIH Osteoporosis and Related Bone Diseases http://www.osteo.org 2. International Society for Clinical Densitometry http://www.iscd.org 3. National Osteoporosis Foundation http://www.nof.org Vargas MONCADA IMG DXA PROCEDURES Final Result * Hepatitis C Screening (08/17/2021) Hepatitis C Screening abstracted Historical Provider HEALTH MAINTENANCE Final Result * Colonoscopy (09/07/2020) Colonoscopy no interpretation , abstracted Anatomical Region Laterality Modality Other Historical Provider HEALTH MAINTENANCE Final Result from Last 3 Months or Most Recently Relevant to Health Maintenance Insurance [facility]ICARE [facility] Care Teams Coat Operator Insulator Relationship Specialty Start Date End Date Vargas Giraldo PA [address] [place] [address] PCP - General Internal Medicine 04/24/24
== END 2025-02-17 10:21 | disposition home or self-care (01) ==
LOC: HO.HSM 09:59
PROVIDERS: PCP Physician Assistant Medical; Referring Provider Physician Assistant Medical; Visit Provider Psychiatry & Neurology Neurology
DX: G30.0 Alzheimer's disease with early onset (principal); F02.A0 Dementia in other diseases classified elsewhere, mild, without behavioral disturbance, psychotic disturbance, mood disturbance, and anxiety; G40.909 Epilepsy, unspecified, not intractable, without status epilepticus
CPT/HCPCS: 99214

== ENCOUNTER → 2025-02-17 09:58 | Outpatient (BNVA) | payer MEDICARE, SELFPAY | PROVIDERS: PCP Physician Assistant Medical; Referring Provider Physician Assistant Medical; Visit Provider Psychiatry & Neurology Neurology | DX: G30.0 Alzheimer's disease with early onset (principal); F02.A0 Dementia in other diseases classified elsewhere, mild, without behavioral disturbance, psychotic disturbance, mood disturbance, and anxiety; G40.909 Epilepsy, unspecified, not intractable, without status epilepticus; G44.209 Tension-type headache, unspecified, not intractable | CPT/HCPCS: 99212 ==

== ENCOUNTER 2025-02-19 12:53 | Outpatient (REF) | payer MEDICARE, SELFPAY ==
--- OUTSIDE RECORDS SUMMARY | 2025-02-17 10:55 | XMS_ITS | Encounter Summary ---
Author Organization [facility] Address [address] [place] [address] Care Team Providers Care Interlocking Tower Operator Name Role Phone Vargas Giraldo Primary Care Provider [phone] Reason for Visit * Imaging (Routine) - Authorized Specialty Diagnoses / Procedures Referred By Sancho calloway Referred To Contact Radiology Diagnoses Encounter for screening mammogram for breast cancer Procedures MG Mammo Digital Screening w Ketan bilat MG Mammo Digital Screening w Ketan bilVargas Walker PA [address] [place] [phone] Phone: tel: fax: [facility] Referral ID Status Reason Start Date Expiration Date V isits Requested Visits Authorized [id number] Authorized 03/28/2024 03/28/2025 1 1 Encounter Details Date Type Department Care Team (Latest Contact Info) Description 02/17/2025 10:55 AM EDT - 02/17/2025 11:59 PM EDT Hospital Encounter Radiology Department - [address] [phone] Encounter for screening mammogram for breast cancer Discharge Disposition: Home or Self Care Social History Tobacco Use Types Packs/Day Years Used Date Smoking Tobacco: Never Smokeless Tobacco: Never Alcohol Use Standard Drinks/Week Comments Yes 0 (1 standard drink = 0.6 oz pur e alcohol) Housing Instability Answer Date Recorde d Are you worried that in the next 2 months you may not have stable housing? No 10/08/2024 Food Access & Nutrition Answer Date Rec orded Do you have access to a vari ety of food including fruits and vegetables? Yes 10/08/2024 Access to Healthcare Answer Date Record ed Within the last 3 months, ho w many times did you visit the emergency department for your medical care? 0 10/08/2024 Health Literacy Answer Date Recorded How often do you need to hav e someone help you when you read instructions, pamphlets, or other written material from your doctor or pharmacy? Never 10/08/2024 Caregiver: How often do you need to have someone help you when you read instructions, pamphlets, or other written material from your doctor or pharmacy? Not on file 10/08/2024 Financial Risk Answer Date Recorded How hard is it for you to pa y for the very basics like food, housing, medical care, and air conditioning / heating? Patient declined 10/08/2024 Transportation Answer Date Recorded Has the lack of transportati on kept you from meetings, work, or from getting things needed for daily living? No Has the lack of transportati on kept you from medical appointments or from getting medications? No 10/08/2024 Social Isolation Answer Date Recorded How often do you feel lonely or isolated from th ose around you? Never 10/08/2024 Food Risk Answer Date Recorded Within the past 12 months we worried whether our food would run out before we got money to buy more. Never true 10/08/2024 Within the past 12 months th e food we bought just didn't last and we didn't have money to get more. Never true 10/08/2024 Dependent Care Answer Date Recorded Do you need help finding or paying for care for your loved ones. For example, early childhood worker or elderly care for an older adult? No 10/08/2024 Education Answer Date Recorded Do you think completing more education or training, like finishing a GED, going to college, or learning a trade, would be helpful for you? No 08/28/2024 Employment and Income Answer Date Recor ded During the last four weeks, have you been actively looking for work? No 10/08/2024 Living Situation Answer Date Recorded What is your living situation? 0 10/08/2024 Comments No Sex and Gender Information Value Date Recorded Sex Assigned at Female 08/06/2024 11:05 AM EST Legal Sex Female 10:04 PM EST Gender Identity Female 08/06/2024 11:05 AM EST Sexual Orientation Not on file documented as of this encounter Medications at Time of Discharge atorvastatin (LIPITOR) 20 mg tablet Take 1 tablet (20 mg total) by mouth 1 (one) time each day. 04/11/2024 betamethasone dipropionate (DIPROSONE) 0.05 % cream Apply topically 2 (two) times a day if needed for irritation or rash. 45 g 11 10/09/2024 busPIRone (BUSPAR) 7.5 mg tablet Take 1 Tablet by mouth 2 times daily. - Oral CALCIUM CARBONATE ORAL Calcium Carbonate-Vitami n D (CALCIUM 500 + D OR Take by mouth 3 times daily. cetirizine (Aller-Chelsi) 10 mg tablet Take 1 tablet (10 mg total) by mouth 1 (one) time each day. 90 tablet 07/12/2024 cholecalciferol (VITAMIN D-3) 25 mcg (1,000 unit) capsule Take 1 Cap by mouth daily. cyanocobalamin (VITAMIN B-12) 1,000 mcg tablet Take 1 tablet (1,000 mcg total) by mouth 1 (one) time each day. 08/08/2023 DULoxetine (CYMBALTA) [address] capsule Take 3 capsules (90 mg total) by mouth 1 (one) time each day. Do not crush or chew. 270 each 3 12/06/2024 gabapentin (NEURONTIN) 300 mg capsule Take 3 capsules (900 mg total) by mouth at bedtime. at bedtime 270 capsule 1 09/11/2024 galcanezumab-gnlm (Emgality Syringe) 120 mg/mL syringe 07/26/2022 levothyroxine (SYNTHROID, LEVOTHROID) 112 mcg tablet Take 1 tablet (112 mcg total) by mouth one time each day. 90 tablet 1 10/19/2024 meloxicam (MOBIC) 15 mg tablet Take 1 tablet (15 mg total) by mouth 1 (one) time each day. 90 tablet 3 02/17/2025 triamcinolone (NASACORT) 55 mcg nasal inhaler Administer 2 sprays into each nostril 1 (one) time each day. 10.8 mL 11 07/08/2024 01/27/202 6 UNABLE TO FIND KLS Aller-Chelsi 10 MG tablet TAKE ONE TABLET BY MOUTH ONCE DAILY documented as of this encounter Discharge Disposition Disposition Code Departure Means Destination Home or Self Care documented in this encounter Plan of Treatment Upcoming Encounters Date Type Department Care Team ([facility] Contact Info) Description 03/06/2025 1:15 PM EDT Office Visit Adult Medicine [facility] [address], [place] [phone] Angie Bishop PA [address], [place] documented as of this encounter Procedures Procedure Name Priority Date/Time Associated Diagnosis Comments MG MAMMO DIGITAL SCREENING W KETAN BILAT Routine 02/17/2025 11:05 AM EDT Encounter for screening mammogram for breast cancer documented in this encounter Results * MG Mammo Digital Screening w Ketan bilat (02/17/2025 11:05 AM EDT) Anatomical Region Laterality Modality Breast Bilateral Mammography 02/18/2025 2:32 PM EDT Impressions 02/18/2025 2:41 PM EDT Benign. BI-RADS CATEGORY: 2 - BENIGN RECOMMENDATION: Screening bilateral mammogram is recommended in 1 year. Mammo Location: [facility], [address] [place] [address], [address], . -------- FINAL REPORT -------- Dictated By: Alpa Betts Dictated Date: 02/18/2025 14:32 ET Assigned Physician: Alpa Betts Reviewed and Electronically Signed By: Alpa Betts Signed Date: 02/18/2025 14:41 ET Workstation ID: [id number] Transcribed By: Self Edit Transcribed Date: 02/18/2025 14:32 ET Narrative 02/18/2025 2:41 PM EDT CLINICAL: 65 years old, Female, routine annual exam. COMPARISON: Mammograms dating back to 01/25/2021 with most recent of 02/09/2024. TECHNIQUE: Bilateral MLO and CC views were obtained digitally with 3-D mammogram (digital breast tomosynthesis). Computer-aided detection was utilized in evaluation of this exam (CAD). FINDINGS: There is no evidence of suspicious mass or architectural distortion. Benign focal asymmetries in both breasts are unchanged. No worrisome calcifications are evident. There is a tissue marker in the medial upper left breast. There has been no significant change from prior exam(s). BREAST DENSITY: B - There are scattered areas of fibroglandular density. Procedure Note Alpa Betts MD - 02/18/2025 CLINICAL: 65 years old, Female, routine annual exam. COMPARISON: Mammograms dating back to 01/25/2021 with most recent of02/09/2024. TECHNIQUE: Bilateral MLO and CC views were obtained digitally with 3-Dmammogram (digital breast tomosynthesis). Computer-aided detection wasutilized in evaluation of this exam (CAD). FINDINGS: There is no evidence of suspicious mass or architectural distortion.Benign focal asymmetries in both breasts are unchanged. No worrisomecalcifications are evident. There is a tissue marker in the medial upperleft breast. There has been no significant change from prior exam(s). BREAST DENSITY: B - There are scattered areas of fibroglandular density. IMPRESSION: Benign. BI-RADS CATEGORY: 2 - BENIGN RECOMMENDATION: Screening bilateral mammogram is recommended in 1 year. Mammo Location: [facility], [address] [place] [address], [id number], . -------- FINAL REPORT -------- Dictated By: Alpa Betts Dictated Date: 02/18/2025 14:32 ET Assigned Physician: Alpa Betts Reviewed and Electronically Signed By: Alpa Betts Signed Date: 02/18/2025 14:41 ET Workstation ID: [id number] Transcribed By: Self Edit Transcribed Date: 02/18/2025 14:32 ET us [facility] BI PROCEDURES Final R esult documented in this encounter Visit Diagnoses Diagnosis Encounter for screening mammogram for breast cancer documented in this encounter Additional Health Concerns Assessment Noted Time PHQ-9 Depression Total Score: 2 08/29/19 25 5:18 PM EDT A fall risk assessment has been complete d for the patient 10/09/2024 2:58 PM EDT documented as of this encounter Care Teams Interlocking Tower Operator Relationship Specialty Start Date End Date Vargas Giraldo PA [address] [place] [address] PCP - General Internal Medicine 04/24/24 documented as of this encounter
--- NOTE | 2025-02-19 14:30 | EEG_ITS ---
Reason: seizure disorder Medications: celecoxib, nitrofurantoin History: H/O depression, chronic tension headaches, multifactorial dementia - Patient complaints of moments of forgetfulness. Patient also reports episodes of auditory and visual changes, zapping in ears and triangles in vision. 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 Patient is reported awake and sleep during the tracing. Background EEG rhythm during wakefulness 14-16 hertz 5-50 microvolt posteriorly lower amplitude fast anteriorly. Patient transitioned into drowsiness with like slowing. Some movement, lead and muscle artifacts are noted. Photic stimulation does not produce any significant abnormality. Hyperventilation with good effort is unremarkable. Cardiac lead does not reveal any significant abnormality. No sharp wave spikes or paroxysmal tendency noted. Impression: No significant abnormality noted on this EEG. MTDD
--- OUTSIDE RECORDS SUMMARY | 2025-02-19 15:54 | XMS_ITS | Clinical Summary ---
Author Organization [facility] Address [address] [place] [address] Phone Care Team Providers Care Speech Language Specialist Name Role Phone Vargas Giraldo Primary Care Provider [phone] Allergies Active Allergy Reactions Criticality Noted Date Comments Celecoxib 08/18/2009 Other Reaction(s): Numbness, tingling or swelling of the lips, tongue or mouth Nitrofurantoin Monohyd/M-Cryst 02/28/2020 vomiting Phentermine Dizziness 08/02/2023 Medications cyanocobalamin (VITAMIN B-12) 1,000 mcg tablet Take 1 tablet (1,000 mcg total) by mouth 1 (one) time each day. 4 Active galcanezumab-gnl m (Emgality Syringe) 120 mg/mL syringe 3 Active [...] time each day. 10.8 mL 11 5 026 Active cetirizine (Aller-Chelsi) 10 mg tablet Take [...] or chew. 270 each 3 5 Active meloxicam (MOBIC) 15 mg tablet Take 1 tablet (15 mg total) by mouth 1 (one) time each day. 90 tablet 3 5 Active meloxicam (MOBIC) 15 mg tablet Take 1 Tablet by mouth daily. 4 025 Discontin ued(Reord er) Active Problems Problem Noted Date Diagnosed Date Mild early onset Alzheimer's dementia ([facility] V24, [facility] V28) 08/29/2024 Assessment & Plan (10/09/2024 3:25 [...] 12/17/2018 Obstructive sleep apnea 11/28/2018 Overview (03/20/2024): [facility] Home Sleep Apnea Test: Date [...] depressive disorder, r ecurrent, moderate (CMS/HCC V24, [facility] V28) 06/01/2015 Assessment & Plan (10/09/2024 3:25 PM EDT): Tinnitus of both ears 02/05/2015 Compression fracture of T12 vertebra ([facility] V24, [facility] V28) 01/15/2015 Actinic keratosis 08/18/2009 Overview (03/20/2024): Actinic Keratosis ( pre-cancers followed by Dr. Simmons ) Hyperlipidemia 08/12/2008 Assessment & Plan (10/09/2024 3:25 PM EDT): Chronic tension headaches 04/18/2008 Insomnia 04/18/2008 Encounters Date Type Department Care Team Description 02/17/2025 10:55 AM EDT - 02/17/2025 11:59 PM EDT Hospital Encounter Radiology Department [address] [phone] Encounter for screening mammogram for breast cancer Discharge Disposition: Home or Self Care from Last 3 Months Immunizations Name Administration [...] 11/22/2005 PROCEDURE: HISTORICAL COLONOSCOPY; COMMENT: Dr. Buck, [facility]. Minor rectal bleed. Small ulcerated area bx'd. SHOULDER SURGERY PROCEDURE: KS UNLISTED PROCEDURE SHOULDER; COMMENT: bilateral, twice on [...] fibroadeonoma OTHER SURGICAL HISTORY 05/30/2023 N/A PROCEDURE: KS SLING OPERATION STRESS INCONTINENCE; COMMENT: Retropubic miduretheral [...] care for your loved ones. For example, child and youth program assistant or elderly care for an older adult? [...] Care Team (Late st Contact Info) Description 03/06/2025 1:15 PM EDT Office Visit Adult Medicine [address] [address] Angie Bishop PA [address], [place] Health Maintenance Due Date Last Done Comments Hepatitis A Vaccines (1 of 2 - Risk 2-dose series) 1977 Hepatitis B Vaccines (1 of 3 - Risk 3-dose series) 2018 COVID-19 Vaccine (8 - Pfizer risk season) 2025 02/15/2024, 03/14/2023, 03/10/2022, Additional history exists Influenza Vaccine (#1) 2025 , 03/01/2023, 02/23/2022, Additional history exists Social Influencers of Health Screening 10/08/2025 10/08/2024 Falls Risk Assessment 10/09/2025 10/09/2024, 024 Medicare Annual Wellness Visit 10/09/2025 10/09/2024 Breast Cancer Screening 02/17/2027 02/18/20, 02/09/2024, 02/09/2024, Additional history exists Colorectal Cancer Screening: Colonoscopy 09/08/2027 09/07/2020 DTaP,Tdap,and Td Vaccines (3 - Td or Tdap) 11/15/2028 11/15/2018, 08/12/2008 Cholesterol Screening (Lipid Panel) 02/17/2030 02/17/2025, 04/26/2024, 02/09/2024, Additional history exists Osteoporosis Screening (Bone Density Screening) 03/08/2033 03/08/2023 [...] this topic Medical Devices Implanted Type Area Fabric Separator Operator Device Identifier Shelf Expiration Date Model / Serial / Lot Rechargeable R20 Neurostimulator Axmt-Manu [id number] - [id number] Implanted:Qty: 1 on 05/30/2023 by Tana Ro MD N/A: Sacrum [employer] 10/26/2025 5101 / [id number] / ++[id number] No Rplc Kit Ld Tined Quad Sns Interstim Medt-Neur [id number] - [id number] Implanted:Qty: 1 on 05/30/2023 by Tana Ro MD N/A: Sacrum [employer] 10/11/2025 [id number] / [id number] / Sling Transvaginal Advantage Fit Blue Bsci-Micr [id number] Implanted:Qty: 1 on 05/30/2023 by Tana Ro MD N/A: Urethra [employer]GYNECOL GY 02/13/2026 [id number] / / [id number] Procedures Procedure Name Priority Date/Time Associated Diagnosis Comments CBC WITH AUTO DIFFERENTIAL Routine 02/17/2025 11:16 AM EDT Fatty liver Generalized anxiety disorder Gastroesophageal reflux disease without esophagitis Hypothyroidism, unspecified type Major depressive disorder, recurrent, moderate (CMS/HCC V24, CMS/HCC V28) Osteopenia, unspecified location Obstructive sleep apnea Mixed hyperlipidemia Mild early onset Alzheimer's dementia, unspecified whether behavioral, psychotic, or mood disturbance or anxiety (CMS/HCC V24, CMS/HCC V28) LIPID PANEL WITH REFLEX TO DIRECT LDL Routine 02/17/2025 11:16 AM EDT Fatty liver Generalized anxiety disorder Gastroesophageal reflux disease without esophagitis Hypothyroidism, unspecified type Major depressive disorder, recurrent, moderate (CMS/HCC V24, CMS/HCC V28) Osteopenia, unspecified location Obstructive sleep apnea Mixed hyperlipidemia Mild early onset Alzheimer's dementia, unspecified whether behavioral, psychotic, or mood disturbance or anxiety (CMS/HCC V24, CMS/HCC V28) COMPREHENSIVE METABOLIC PANEL Routine 02/17/2025 11:16 AM EDT Fatty liver Generalized anxiety disorder Gastroesophageal reflux disease without esophagitis Hypothyroidism, unspecified type Major depressive disorder, recurrent, moderate (CMS/HCC V24, CMS/HCC V28) Osteopenia, unspecified location Obstructive sleep apnea Mixed hyperlipidemia Mild early onset Alzheimer's dementia, unspecified whether behavioral, psychotic, or mood disturbance or anxiety (CMS/HCC V24, CMS/HCC V28) CBC AND DIFFERENTIAL Routine 02/17/2025 11:16 AM EDT Fatty liver Generalized anxiety disorder Gastroesophageal reflux disease without esophagitis Hypothyroidism, unspecified type Major depressive disorder, recurrent, moderate (CMS/HCC V24, CMS/HCC V28) Osteopenia, unspecified location Obstructive sleep apnea Mixed hyperlipidemia Mild early onset Alzheimer's dementia, unspecified whether behavioral, psychotic, or mood disturbance or anxiety (CMS/HCC V24, CMS/HCC V28) VITAMIN B12 Routine 02/17/2025 11:16 AM EDT Fatty liver Generalized anxiety disorder Gastroesophageal reflux disease without esophagitis Hypothyroidism, unspecified type Major depressive disorder, recurrent, moderate (CMS/HCC V24, CMS/HCC V28) Osteopenia, unspecified location Obstructive sleep apnea Mixed hyperlipidemia Mild early onset Alzheimer's dementia, unspecified whether behavioral, psychotic, or mood disturbance or anxiety (CMS/HCC V24, CMS/HCC V28) THYROID STIMULATING HORMONE WITH REFLEX TO FREE T4 AND FREE T3 Routine 02/17/2025 11:16 AM EDT Fatty liver Generalized anxiety disorder Gastroesophageal reflux disease without esophagitis Hypothyroidism, unspecified type Major depressive disorder, recurrent, moderate (CMS/HCC V24, CMS/HCC V28) Osteopenia, unspecified location Obstructive sleep apnea Mixed hyperlipidemia Mild early onset Alzheimer's dementia, unspecified whether behavioral, psychotic, or mood disturbance or anxiety (CMS/HCC V24, CMS/HCC V28) HEMOGLOBIN A1C Routine 02/17/2025 11:16 AM EDT Fatty liver Generalized anxiety disorder Gastroesophageal reflux disease without esophagitis Hypothyroidism, unspecified type Major depressive disorder, recurrent, moderate (CMS/HCC V24, CMS/HCC V28) Osteopenia, unspecified location Obstructive sleep apnea Mixed hyperlipidemia Mild early onset Alzheimer's dementia, unspecified whether behavioral, psychotic, or mood disturbance or anxiety (CMS/HCC V24, CMS/HCC V28) Impaired fasting glucose MG MAMMO DIGITAL SCREENING W KETAN BILAT Routine 02/17/2025 11:05 AM EDT Encounter for screening mammogram for breast cancer FALLS RISK ASSESSMENT Routine 02/09/2024 DXA BONE DENSITY STUDY 1+ SITS AXIAL SKEL Routine 03/08/2023 11:31 AM EDT Encounter for immunization Fatty (change of) liver, not elsewhere classified Other obesity due to excess calories Body mass index (BMI) 30.0-30.9, adult Obstructive sleep apnea (adult) (pediatric) Generalized anxiety disorder Major depressive disorder, recurrent, moderate ([facility] V24, [facility] V28) Hyperlipidemia, unspecified Hypothyroidism, unspecified Gastro-esophageal reflux disease without esophagitis HEPATITIS C SCREENING Routine 08/17/2021 COLONOSCOPY Routine 09/07/2020 from Last 3 Months or Most Recently Relevant to Health Maintenance Results * Thyroid stimulating hormone with reflex to free t4 and free t3 (02/17/2025 11:16 AM EDT) TSH 2.49 0.40 - 4.00 mcIU/mL LAB CHEMISTRY METHOD 02/17/2025 5:29 PM EDT [facility] Blood Venous blood specimen / Unknown Venipuncture / Unknown 02/17/2025 11:16 AM EDT 02/17/2025 11:16 AM EDT us Vargas MONCADA LAB BLOOD ORDERABLES Lori l Result [facility] [address] [place] [address], [place] [phone] * (ABNORMAL) Lipid panel with reflex to direct LDL (02/17/2025 11:16 AM EDT) Pathologist [facility] Cholesterol 162 0 - 200 mg/dL LAB CHEMISTRY METHOD 02/17/2025 4:40 PM EDT [facility] Triglycerides 248(H) 0 - 150 mg/dL LAB CHEMISTRY METHOD 02/17/2025 4:40 PM EDT [facility] HDL 46 >=40 mg/dL LAB CHEMISTRY METHOD 02/17/2025 4:40 PM EDT [facility] LDL Calculated 66 0 - 100 mg/dL LAB CHEMISTRY METHOD 02/17/2025 4:40 PM EDT [facility] Comment:Estimated LDL Calcul ated using equation: Total cholesterol - HDL cholesterol - (Triglycerides/5) VLDL Cholesterol Celso 49.6 mg/dL LAB CHEMISTRY METHOD 02/17/2025 4:40 PM EDT [facility] Non HDL Chol. (LDL+VLDL) 116 <145 mg/dL LAB CHEMISTRY METHOD 02/17/2025 4:40 PM EDT [facility] Chol/HDL Ratio 3.5 0.0 - 4.4 LAB CHEMISTRY METHOD 02/17/2025 4:40 PM EDT [facility] Blood Venous blood specimen / Unknown Venipuncture / Unknown 02/17/2025 11:16 AM EDT 02/17/2025 11:16 AM EDT us Vargas MONCADA LAB BLOOD ORDERABLES Lori l Result [facility] [address] [place] [address], [place] [phone] * CBC auto differential (02/17/2025 11:16 AM EDT) Pathologist [facility] WBC 9.1 4.8 - 10.8 K/mcL LAB HEMETOLOGY METHOD 02/17/2025 12:40 PM EDT [facility] RBC 4.10 3.80 - 4.80 M/mcL LAB HEMETOLOGY METHOD 02/17/2025 12:40 PM EDT [facility] Hemoglobin 12.5 11.5 - 16.0 g/dL LAB HEMETOLOGY METHOD 02/17[facility]2025 12[facility] Hematocrit 39.1 35.0 - 47.0 % LAB HEMETOLOGY METHOD 02/17/2025 12:40 PM EDT [facility] MCV 95.6 79.0 - 98.0 FL LAB HEMETOLOGY METHOD 02/17/2025 12:40 [facility] MCH 30.6 27.0 - 32.0 pcg LAB HEMETOLOGY METHOD 02/17/2025 12:40 [facility] MCHC 32.0 32.0 - 37.0 g/dL LAB HEMETOLOGY METHOD 02/17/2025 12:40 [facility] RDW 12.7 11.0 - 15.0 % LAB HEMETOLOGY METHOD 02/17/2025 12:40 [facility] Platelets 332 130 - 400 K/mcL LAB HEMETOLOGY METHOD 02/17/2025 12:40 [facility] MPV 10.7 7.0 - 11.0 FL LAB HEMETOLOGY METHOD 02/17/2025 12:40 PM EDT [facility] NRBC 0.0 <1.0 % LAB HEMETOLOGY METHOD 02/17/2025 12:40 PM EDT [facility] NRBC Absolute 0.00 <0.10 K/mcL LAB HEMETOLOGY METHOD 02/17/2025 12:40 [facility] Neutrophils Relative 64.9 % LAB HEMETOLOGY METHOD 02/17/2025 12:40 PM EDT [facility] Lymphocytes Relative 27.5 % LAB HEMETOLOGY METHOD 02/17/2025 12:40 PM [facility] Monocytes Relative 5.6 % LAB HEMETOLOGY METHOD 02/17/2025 12:40 PM [facility] Eosinophils Relative 1.3 % LAB HEMETOLOGY METHOD 02/17/2025 12:40 PM [facility] Basophils Relative 0.4 % LAB HEMETOLOGY METHOD 02/17/2025 12:40 PM [facility] Immature Granulocytes Relative 0.3 % LAB HEMETOLOGY METHOD 02/17/2025 12:40 PM [facility] Neutrophils Absolute 5.86 1.50 - 7.00 K/mcL LAB HEMETOLOGY METHOD 02/17/2025 12:40 PM [facility] Lymphocytes Absolute 2.49 1.00 - 5.00 K/mcL LAB HEMETOLOGY METHOD 02/17/2025 12:40 PM [facility] Monocytes Absolute 0.51 0.20 - 1.00 K/mcL LAB HEMETOLOGY METHOD 02/17/2025 12:40 PM [facility] Eosinophils Absolute 0.12 0.00 - 0.50 K/mcL LAB HEMETOLOGY METHOD 02/17/2025 12:40 PM [facility] Basophils Absolute 0.04 0.00 - 0.20 K/mcL LAB HEMETOLOGY METHOD 02/17/2025 12:40 PM [facility] Immature Granulocytes Absolute 0.03 0.00 - 0.03 K/mcL LAB HEMETOLOGY METHOD 02/17/2025 12:40 PM [facility] Blood Venous blood specimen / Unknown Venipuncture / Unknown 02/17/2025 11:16 AM EDT 02/17/2025 11:16 AM EDT Vargas Giraldo [place] LAB BLOOD ORDERABLES Lori l Result [facility] [address] [place] [address], [place] [phone] * (ABNORMAL) Hemoglobin A1c (02/17/2025 11:16 AM EDT) [facility] Hemoglobin A1C 6.8(H) <6.5 % LAB CHEMISTRY METHOD 02/18/2025 9:23 AM EDT [facility] Mean Bld Glu Estim. 148 mg/dL LAB CHEMISTRY METHOD 02/18/2025 9:23 AM EDT [facility] Blood Venous blood specimen / Unknown Venipuncture / Unknown 02/17/2025 11:16 AM EDT 02/17/2025 11:16 AM EDT Psychiatric Hansel Giraldo [place] LAB BLOOD ORDERABLES Lori l Result Performing Organization Address [facility]/ZIP Co de Phone Number [facility] [address] [place] [address], [place] [phone] * Vitamin B12 (02/17/2025 11:16 AM EDT) [facility] Vitamin B-12 449 250 - 900 pcg/mL LAB CHEMISTRY METHOD 02/17/2025 7:14 PM EDT [facility] Blood Venous blood specimen / Unknown Venipuncture / Unknown 02/17/2025 11:16 AM EDT 02/17/2025 11:16 AM EDT [facility] Giraldo [place] LAB BLOOD ORDERABLES Lori l Result [facility] [address] [place] [address], [place] [phone] * (ABNORMAL) Comprehensive metabolic panel (02/17/2025 11:16 AM EDT) [facility] Signature Sodium 138 133 - 145 mmol/L LAB CHEMISTRY METHOD 02/17/2025 4:44 PM [facility] Potassium 4.2 3.5 - 5.5 mmol/L LAB CHEMISTRY METHOD 02/17/2025 4:44 PM [facility] Chloride 106 96 - 110 mmol/L LAB CHEMISTRY METHOD 02/17/2025 4:44 PM [facility] CO2 29 21 - 32 mmol/L LAB CHEMISTRY METHOD 02/17/2025 4:44 PM [facility] Anion Gap 3 3 - 11 LAB CHEMISTRY METHOD 02/17/2025 4:44 PM [facility] Glucose 196(H) 70 - 100 mg/dL LAB CHEMISTRY METHOD 02/17/2025 4:44 PM [facility] BUN 11 5 - 25 mg/dL LAB CHEMISTRY METHOD 02/17/2025 4:44 PM [facility] Creatinine 0.71 0.50 - 1.10 mg/dL LAB CHEMISTRY METHOD 02/17/2025 4:44 PM [facility] eGFR 93 >=60 mL/min/1. 73m2 LAB CHEMISTRY METHOD 02/17/2025 4:44 PM [facility] Comment:Calculation based on the Chronic Kidney Disease Epidemiology Collaboration (CKD-EPI) equation refit without adjustment for race. BUN/Creatinine Ratio 15.5 LAB CHEMISTRY METHOD 02/17/2025 4:44 PM [facility] Calcium 9.4 8.5 - 10.5 mg/dL LAB CHEMISTRY METHOD 02/17/2025 4:44 PM [facility] AST (SGOT) 86(H) 10 - 42 unit/L LAB CHEMISTRY METHOD 02/17/2025 4:44 PM [facility] ALT (SGPT) 62(H) 10 - 60 unit/L LAB CHEMISTRY METHOD 02/17/2025 4:44 PM EDT [facility] Alkaline Phosphatase 104 42 - 121 unit/L LAB CHEMISTRY METHOD 02/17/2025 4:44 PM EDT [facility] Total Protein 7.0 6.0 - 8.0 g/dL LAB CHEMISTRY METHOD 02/17/2025 4:44 PM EDT [facility] Albumin 3.7 3.2 - 5.0 g/dL LAB CHEMISTRY METHOD 02/17/2025 4:44 PM EDT [facility] Total Bilirubin 0.4 0.0 - 1.4 mg/dL LAB CHEMISTRY METHOD 02/17/2025 4:44 PM EDT [facility] Blood Venous blood specimen / Unknown Venipuncture / Unknown 02/17/2025 11:16 AM EDT 02/17/2025 11:16 AM EDT Vargas MONCADA LAB BLOOD ORDERABLES Lori l Result [facility] [address] [place] [address], * MG Mammo Digital Screening w Ketan bilat (02/17/2025 11:05 AM EDT) Anatomical Region Laterality Modality Breast Bilateral Mammography 02/18/2025 2:32 PM EDT Impressions 02/18/2025 2:41 PM EDT Benign. BI-RADS CATEGORY: 2 - BENIGN RECOMMENDATION: Screening bilateral mammogram is recommended in 1 year. Mammo Location: [facility], [address] [place] [address], [id number], . -------- FINAL REPORT -------- Dictated By: Alpa Betts Dictated Date: 02/18/2025 14:32 ET Assigned Physician: Alpa Betts Reviewed and Electronically Signed By: Alpa Betts Signed Date: 02/18/2025 14:41 ET Workstation ID: [id number] Transcribed By: Self Edit Transcribed Date: 02/18/2025 [...] is recommended in 1 year. Mammo Location: [facility], [address] [place] [address], [address], . -------- FINAL REPORT -------- Dictated By: Alpa Betts Dictated Date: 02/18/2025 14:32 ET Assigned Physician: Alpa Betts Reviewed and Electronically Signed By: Alpa Betts Signed Date: 02/18/2025 14:41 ET Workstation ID: [id number] Transcribed By: Self Edit Transcribed Date: 02/18/2025 14:32 ET Vargas MONCADA IMG BI PROCEDURES Final R esult * Hm Falls Risk Assessment (02/09/2024) Falls Risk Assessment abstracted Historical Provider HEALTH MAINTENANCE Final Result * DXA BONE [...] Recently Relevant to Health Maintenance Insurance MEDICARE [facility] Care Teams Speech Language Specialist Relationship Specialty Start Date End Date Vargas Giraldo PA [address] [place] [address] PCP - General Internal Medicine 04/24/24
--- OUTSIDE RECORDS SUMMARY | 2025-02-19 15:54 | XMS_ITS | Clinical Summary ---
Author Organization [facility] Address [address] [place] [address] Care Team Providers Care Microbiology Manager Name Role Phone Vargas Giraldo PA-C Primary [...] this topic Medical Devices Implanted Type Area Home Stereo Equipment Installer Device Identifier Shelf Expiration Date Model / Serial / Lot Rechargeable R20 Neurostimulator [facility] [id number] - [id number] Implanted:Qty: 1 on 05/30/2023 [place] Ro [place] [facility] [place]/A: Sacrum [employer] 10/26/2025 5101 / [id number] / ++[id number] No Rplc Kit Ld Tined Quad Sns Interstim Medt-Neur [id number] - [id number] Implanted:Qty: 1 on 05/30/2023 by Tana Ro [place] [facility] [place] N/A: Sacrum [employer] 10/11/2025 3889-28 / [id number] / Sling Transvaginal Advantage Fit Blue Bsci-Micr [id number] - [id number] Implanted:Qty: 1 on 05/30/2023 by Tana Ro MD [place] [facility] [place] N/A: Urethra [facility] GYNECOLGY 02/13/2026 [id number] / [id number] Care Teams Microbiology Manager Relationship Specialty Start Date End Date Vargas Giraldo, PAMichaelC PCP - General Medical Services 05/26/23
--- OUTSIDE RECORDS SUMMARY | 2025-02-19 15:54 | XMS_ITS | Patient Health Record ---
Author Organization [facility] Address [address] [address] Support Name Relationship Address Phone KINGSTON BOURGEOIS Guarantor Unknown [phone] Reason For Referral No Information Medications Medication SIG (Take, Route, Fr equency, Duration) Notes Start Date End Date Status Tylenol Arthritis Pain ORAL daily; Duration: -3 [facility] [place]- Active VESIcare 5MG 1 ORAL daily; Duration: -3 [facility]- 06/11/2012 Active Calcium-Carb 600 + D 1 ORAL daily; Duration: -3 [facility]- Active Nabumetone 500MG 2 ORAL daily; Duration: -3 [facility] [place]- 2010 Active Levoxyl 75MCG 1 ORAL DAILY; Duration: -3 [facility]- 2 Active Simvastatin 40MG 1 ORAL daily; Duration: -3 [facility] [place]- 2010 Active PriLOSEC OTC 40MG 1 ORAL twice daily; Duration: -3 [facility] [place]- 06/11/2012 Active Problems Problem Type SNOMED Code ICD Code Onset Dates Problem Status W/U Status Risk Notes Problem Esophageal reflux (454510226) Esophageal reflux (530.81) Active confirmed Major Problem Irritable bowel syndrome (93604580) Irritable bowel syndrome (564.1) Active confirmed Major Problem Menopausal symptom (98137034) Symptomatic menopausal or female climacteric states (627.2) Active confirmed Diag Problem Osteoarthritis (540929631) Osteoarthrosis, unspecified whether generalized or localized, unspecified site (715.90) Active confirmed Major Problem Headache (76991250) Headache (784.0) Active confirmed Major Problem Urinary incontinence (941396865) Unspecified urinary incontinence (788.30) Active confirmed Major Problem Gynecological examination normal (093114910665250) Routine gynecological examination (V72.31) Active confirmed Major Problem Exercises teaching, guidance, and counseling (027408284) Exercise counseling (V65.41) Active confirmed Diag Problem Screening for malignant neoplasm of colon (108137781) Special screening for malignant neoplasms, colon (V76.51) Active confirmed Major Plan Of Treatment No Information Insurance Providers Payer Name Payer Address Payer Phone Subscriber Number Group Number Insured Name Patient Relationship to Insured Coverage Start Date Coverage End Date [employer] [address] [address] [place] [address] [id number] KINGSTON BOURGEOIS Self - patient is the insured [facility] [address] [place] [address] [id number] KINGSTON BOURGEOIS Self - patient is the insured
== END 2025-02-19 12:54 | disposition home or self-care (01) ==
LOC: HO.NEURO 12:53
PROVIDERS: PCP Physician Assistant Medical; Visit Provider Psychiatry & Neurology Neurology
DX: G40.909 Epilepsy, unspecified, not intractable, without status epilepticus (principal)
CPT/HCPCS: 95816

== ENCOUNTER → 2025-02-19 14:30 | Outpatient (BNV) | payer MEDICARE, SELFPAY | PROVIDERS: PCP Physician Assistant Medical; Visit Provider Psychiatry & Neurology Neurology | DX: G40.909 Epilepsy, unspecified, not intractable, without status epilepticus (principal) | CPT/HCPCS: 95819 ==

== ENCOUNTER → 2025-03-11 13:33 | Outpatient (AMB) | payer MEDICARE, SELFPAY ==
--- OUTSIDE RECORDS SUMMARY | 2025-03-06 13:15 | XMS_ITS | Encounter Summary ---
Author Organization [facility] Address [address] [place] [address] Care Team Providers Care Teleprinter Installer Name Role Phone Vargas Giraldo Primary Care Provider [phone] Reason for Referral * Medications - Authorized Specialty Diagnoses / Procedures Referred By Snacho t Referred To Contact Diagnoses New onset type 2 diabetes mellitus (CMS/HCC V24, CMS/HCC V28) Obesity (BMI 30-39.9) Angie Bishop PA [address], [place] Phone: tel: fax: Referral ID Status Reason Start Date Expiration Date V isits Requested Visits Authorized [id number] Authorized 03/07/2025 06/11/2025 1 1 Reason for Visit * Reason Comments Follow-up 6 month f/u Encounter Details Date Type Department Care Team (Late st Contact Info) Description 03/06/2025 1:15 PM EDT Office Visit Adult Medicine [address] [phone] Angie Bishop PA [address] [place], [place] New onset type 2 diabetes mellitus (CMS/HCC V24, CMS/HCC V28) (Primary Dx); Obesity (BMI 30-39.9); Mixed hyperlipidemia; Hypothyroidism, unspecified type; Vitamin B12 deficiency; Vitamin D deficiency; Elevated LFTs; Anxiety and depression Social History Tobacco Use Types Packs/Day Years [...] for your loved ones. For example, children's aide or elderly care for an older adult? [...] Date Recorded What is your living situation? Unrecognized valu e 10/08/2024 Comments No Sex and Gender Information Value Date Recorded Sex Assigned at Female 08/06/2024 11:05 AM EST Legal Sex Female 10:04 PM EST Gender Identity Female 08/06/2024 11:05 AM EST Sexual Orientation Not on file documented as of this encounter Last Filed Vital Signs Vital Sign Reading Time Taken Comments Blood Pressure 123/63 03/06/2025 1:19 PM EDT Pulse 98 03/06/2025 1:30 PM EDT Temperature 35.6 C (96.1 F) 03/06/2025 1:19 PM EDT Respiratory Rate 16 03/06/2025 1:19 PM EDT Oxygen Saturation 95% 03/06/2025 1:30 PM EDT Inhaled Oxygen Concentration - - Weight 80.7 kg (178 lb) 03/06/2025 1:19 PM EDT Height 162.6 cm (5' 4 ) 03/06/2025 1:19 PM EDT Body Mass Index 30.55 03/06/2025 1:19 PM EDT documented in this encounter Ordered Prescriptions Prescription Sig Dispense Quantity Refills Last Filled Start Date End Date semaglutide (OZEMPIC) 0.25 mg or 0.5 mg (2 mg/3 mL) injection penIndications:New onset type 2 diabetes mellitus (CMS/HCC V24, CMS/HCC V28),Obesity (BMI 30-39.9) Inject 0.25 mg under the skin every 7 (seven) days. 3 mL 2 03/06/2025 documented in this encounter Progress Notes * ANTWAN Mcdonald - 03/06/2025 1:15 PM EDT CHIEF COMPLAINT: Follow-up (6 month f/u) IDENTIFIER: Fallon Armenta is a 65 y.o. old female. HPI: Patient is a 65-year-old female who presents to the office today for a medication review. She completed labs recently which revealed new diagnosis of diabetes with a hemoglobin A1c of 6.8%, elevated LFTs. She denies excessive tylenol use, alcohol use. She takes tumeric and blink capsules (dry eye). ROS: GENERAL: No malaise, significant weight loss or fever HEENT: No changes in vision RESPIRATORY: No cough, wheezing or shortness of breath CARDIOVASCULAR: No chest pain, leg swelling or palpitations NEURO: No persistent headache ENDO: No hypoglycemic episodes PAST MEDICAL HISTORY: Patient Active Problem List Diagnosis Date Noted New onset type 2 diabetes mellitus ([facility] V24, [facility] V28) 03/06/2025 Mild early onset Alzheimer's dementia ([facility] V24, [facility] V28) 08/29/2024 GERD (gastroesophageal reflux disease) 03/20/2024 Hypothyroidism 03/20/2024 Irritable bowel syndrome 03/20/2024 Stress incontinence 03/20/2024 Vitamin B12 deficiency 08/08/2023 Frequency of urination 05/22/2023 Urge incontinence 05/22/2023 Urgency of urination 05/22/2023 Osteopenia 03/08/2023 MRSA (methicillin resistant staph aureus) culture positive 10/11/2021 Fatty liver 08/23/2021 Rib pain on left side 02/26/2021 Varicose veins of both lower extremities 02/26/2021 Obese 12/17/2018 Obstructive sleep apnea 11/28/2018 Primary osteoarthritis of both hands 08/20/2018 Primary osteoarthritis of both knees 08/20/2018 Cervical radiculitis 06/08/2018 Calcific tendinitis of right shoulder 11/27/2017 Medial epicondylitis of left elbow 05/23/2017 Generalized anxiety disorder 06/01/2015 Major depressive disorder, recurrent, moderate ([facility] V24, [facility] V28) 06/01/2015 Tinnitus of both ears 02/05/2015 Compression fracture of T12 vertebra ([facility] V24, [facility] V28) 01/15/2015 Actinic keratosis 08/18/2009 Hyperlipidemia 08/12/2008 Chronic tension headaches 04/18/2008 Insomnia 04/18/2008 Past Surgical History: Procedure Laterality Date ANKLE SURGERY 2010 PROCEDURE: HISTORICAL ANKLE SURGERY; COMMENT: x2 ruptured achilles tendon 12/20 BLADDER SURGERY 2005 PROCEDURE: HISTORICAL BLADDER SURGERY; COMMENT: 2005 BREAST BIOPSY Left PROCEDURE: BX BREAST; PERC NEEDLE CORE W/IMAG GUID; COMMENT: stereo bx 2021 fibroadeonoma COLONOSCOPY 11/22/2005 PROCEDURE: HISTORICAL COLONOSCOPY; COMMENT: Dr. Buck, [facility]. Minor rectal bleed. Small ulcerated area bx'd. COLONOSCOPY 08/17/2015 PROCEDURE: HISTORICAL COLONOSCOPY; COMMENT: 5 mm cecal polyp: SSA. COLONOSCOPY 09/07/2020 PROCEDURE: HISTORICAL COLONOSCOPY; COMMENT: Diverticulosis ascending colon, no polyps, repeat in 7 to 10 years. FOOT SURGERY 2010 PROCEDURE: HISTORICAL FOOT SURGERY; COMMENT: 09/2010 bone spur HYSTERECTOMY PROCEDURE: HISTORICAL HYSTERECTOMY; COMMENT: still has ovaries OTHER SURGICAL HISTORY N/A 05/30/2023 PROCEDURE: MA SLING OPERATION STRESS INCONTINENCE; COMMENT: Retropubic miduretheral sling; Axonics neurostim placement SHOULDER SURGERY PROCEDURE: MA UNLISTED PROCEDURE SHOULDER; COMMENT: bilateral, twice on right TUBAL LIGATION PROCEDURE: HISTORICAL TUBAL LIGATION SOCIAL HISTORY: Social History Tobacco Use Smoking status: Never Smokeless tobacco: Never Substance Use Topics Alcohol use: Yes FAMILY HISTORY: Family History Problem Relation Name Age of Onset Diabetes Mother Heart attack Mother years of angina Lung cancer Father Hypertension, prostate issues, COPD, liver disease Colon cancer Paternal Grandmother over 50 Heart attack Paternal Grandfather Colon cancer Aunt paternal over 50 Breast cancer Other mat cousin older than 45 - maybe 60s Thyroid disease Sister Other (Other: rheumatoid arthritis) Sister MEDICATIONS DISCONTINUED/REORDERED: Medications Discontinued During This Encounter Medication Reason UNABLE TO FIND Therapy completed triamcinolone (NASACORT) 55 mcg nasal inhaler Therapy completed cetirizine (Aller-Chelsi) 10 mg tablet Therapy completed ACTIVE MEDICATIONS: Outpatient Medications Marked as Taking for the 03/06/25 encounter (Office Visit) with ANTWAN Mcdonald Medication Sig Dispense Refill atorvastatin (LIPITOR) 20 mg tablet Take 1 tablet (20 mg total) by mouth 1 (one) time each day. betamethasone dipropionate (DIPROSONE) 0.05 % cream Apply topically 2 (two) times a day if needed for irritation or rash. 45 g 11 busPIRone (BUSPAR) 7.5 mg tablet Take 1 Tablet by mouth 2 times daily. - Oral CALCIUM CARBONATE ORAL Calcium Carbonate-Vitamin D (CALCIUM 500 + D OR Take by mouth 3 times daily. cholecalciferol (VITAMIN D-3) 25 mcg (1,000 unit) capsule Take 1 Cap by mouth daily. cyanocobalamin (VITAMIN B-12) 1,000 mcg tablet Take 1 tablet (1,000 mcg total) by mouth 1 (one) time each day. DULoxetine (CYMBALTA) [address] capsule Take 3 capsules (90 mg total) by mouth 1 (one) time each day. Do not crush or chew. 270 each 3 gabapentin (NEURONTIN) 300 mg capsule Take 3 capsules (900 mg total) by mouth at bedtime. at bedtime 270 capsule 1 galcanezumab-gnlm (Emgality Syringe) 120 mg/mL syringe levothyroxine (SYNTHROID, LEVOTHROID) 112 mcg tablet Take 1 tablet (112 mcg total) by mouth one time each day. 90 tablet 1 meloxicam (MOBIC) 15 mg tablet Take 1 tablet (15 mg total) by mouth 1 (one) time each day. 90 tablet 3 ALLERGIES: Allergies Allergen Reactions Celecoxib Other Reaction(s): Numbness, tingling or swelling of the lips, tongue or mouth Nitrofurantoin Monohyd/M-Cryst vomiting Phentermine Dizziness PHYSICAL EXAM: Blood pressure 123/63, pulse 98, temperature 35.6 ??C (96.1 ??F), temperature source Temporal, resp. rate 16, height 1.626 m (64 ), weight 80.7 kg (178 lb), SpO2 95%. Body mass index is 30.55 kg/m??.BMI is greater than 25.0 (above the normal range) - see Plan APPEARANCE: Alert and in no acute distress HEART: RRR with normal S1 and S2, no murmurs, no gallops LUNG: Clear to auscultation EXTREMITIES: Extremities warm and well perfused without clubbing, cyanosis, or edema. Sensory exam of the foot is normal, tested with the monofilament. 2+ dorsalis pedis pulses, no lesions or ulcers NEURO: Awake, alert and oriented x 3 LABS: Lab Results Component Value Date CHOL 162 02/17/2025 CHOL 168 04/26/2024 CHOL 191 02/09/2024 Lab Results Component Value Date HDL 46 02/17/2025 HDL 56 04/26/2024 HDL 68 02/09/2024 Lab Results Component Value Date LDLCALC 66 02/17/2025 LDLCALC 72 04/26/2024 Lab Results Component Value Date TRIG 248 (H) 02/17/2025 TRIG 199 (H) 04/26/2024 TRIG 178 (A) 02/09/2024 Lab Results Component Value Date CHOLHDL 3.5 02/17/2025 CHOLHDL 3.0 04/26/2024 Lab Results Component Value Date NA 138 02/17/2025 K 4.2 02/17/2025 CL 106 02/17/2025 CO2 29 02/17/2025 GLUCOSE 196 (H) 02/17/2025 BUN 11 02/17/2025 CREATININE 0.71 02/17/2025 CALCIUM 9.4 02/17/2025 PROT 7.0 02/17/2025 ALBUMIN 3.7 02/17/2025 BILITOT 0.4 02/17/2025 AST 86 (H) 02/17/2025 ALT 62 (H) 02/17/2025 ALKPHOS 104 02/17/2025 EGFR 93 02/17/2025 Lab Results Component Value Date HGBA1C 6.8 (H) 02/17/2025 Lab Results Component Value Date WBC 9.1 02/17/2025 HGB 12.5 02/17/2025 HCT 39.1 02/17/2025 MCV 95.6 02/17/2025 PLT 332 02/17/2025 Component Latest Ref Rng 02/17/2025 TSH 0.40 - 4.00 mcIU/mL 2.49 Vitamin B-12 250 - 900 pcg/mL 449 IMAGING: None IMPRESSION/PLAN: 1. New onset type 2 diabetes mellitus ([facility]/HCC V24, [facility] V28) Comprehensive metabolic panel Hemoglobin A1c Lipid panel with reflex to direct LDL Microalbumin creatinine urine ratio semaglutide (OZEMPIC) 0.25 mg or 0.5 mg (2 mg/3 mL) injection pen 2. Obesity (BMI 30-39.9) semaglutide (OZEMPIC) 0.25 mg or 0.5 mg (2 mg/3 mL) injection pen 3. Mixed hyperlipidemia 4. Hypothyroidism, unspecified type 5. Vitamin B12 deficiency 6. Vitamin D deficiency 7. Elevated LFTs Hepatic function panel Hepatitis panel, acute with reflex to confirmation 8. Anxiety and depression Medication and lab orders: Orders Placed This Encounter Procedures Hepatic function panel Hepatitis panel, acute with reflex to confirmation Comprehensive metabolic panel Hemoglobin A1c Lipid panel with reflex to direct LDL Microalbumin creatinine urine ratio Other orders: None New diagnosis of diabetes mellitus with a hemoglobin A1c of 6.8%. Diabetic foot exam done today andwas normal. Patient will make DM eye exam appointment. Patient is up-to-date with dental exams. Patient does not smoke cigarettes. Discussed vaccinations, she will get flu shot at the pharmacy. She does not want a glucometer, her has one. Patient told to keep a log of their blood sugars - check sugars once a day at various times (fasting, after lunch). She is interested in GLP-1 injectionto help with weight loss as well. Ozempic 0.25 mg weekly prescribed. Discussed side effects. No contraindications including personal history of pancreatitis, family history of medullary thyroid cancer, men 2. Mixed hyperlipidemia. Continue Lipitor daily. Labs were done nonfasting. Encourage patient to do blood work fasting next time. Hypothyroidism. TSH normal. Continue current dose of levothyroxine. Vitamin B12 deficiency and vitamin D deficiency. Continue on supplements. Elevated LFTs. Advised patient to stop taking turmeric. Denies excessive Tylenol use, alcohol use. Follow-up labs ordered for 1 month. Consider liver ultrasound. She does have known fatty liver. Anxiety and depression controlled. Continue on current medications. I have applied the code G2211 to this patient???s visit as the primary care provider dealing with (see above issues) leading to the extensive work up, and management associated with the medical care of this patient. This patient???s serious conditions and complex medical conditions also required several consultants needing management and coordination through my office. I have reviewed all information as it pertains to the management of this patient for final approval. Advised the patient to call me if any problems. Patient understands the plan. Patient is in agreement with the plan. Today's documentation was made using voice recognition software.This note may contain grammatical errors secondary to this software. Angie Bishop PA-C documented in this encounter Plan of Treatment Upcoming Encounters Date Type Department Care Team (Late st Contact Info) Description 03/20/2025 11:30 AM EDT Appointment Radiology Department [address] [phone] 03/20/2025 12:15 PM EDT Appointment Radiology Department - [address] [phone] 07/17/2025 11:00 AM EST Office Visit [facility] - [address] [phone] Angie Bishop PA [address] [place], [place] Scheduled Orders Name Type Priority Associated Diagnoses Orde r Schedule Hepatic function panel Lab Routine Elevated LFTs Expected: 04/05/2025, Expires: 03/06/2026 Hepatitis panel, acute with reflex to confirmation Lab Routine Elevated LFTs Expected: 04/05/2025, Expires: 03/06/2026 Comprehensive metabolic panel Lab Routine New onset type 2 diabetes mellitus ([facility] V24, [facility] V28) Expected: 06/05/2025, Expires: 03/06/2026 Hemoglobin A1c Lab Routine New onset type 2 diabetes mellitus ([facility] V24, [facility] V28) Expected: 06/05/2025, Expires: 03/06/2026 Lipid panel with reflex to direct LDL Lab Routine New onset type 2 diabetes mellitus ([facility] V24, [facility] V28) Expected: 06/05/2025, Expires: 03/06/2026 Microalbumin creatinine urine ratio Lab Routine New onset type 2 diabetes mellitus ([facility] V24, [facility] V28) Expected: 06/05/2025, Expires: 03/06/2026 documented as of this encounter Visit Diagnoses Diagnosis New onset type 2 diabetes mellitus ([facility] V24, CMS/HCC V28)- Primary Obesity (BMI 30-39.9) Mixed hyperlipidemia Hypothyroidism, unspecified type Vitamin B12 deficiency Other B-complex deficiencies Vitamin D deficiency Elevated LFTs Other abnormal blood chemistry Anxiety and depression documented in this encounter Discontinued Medications Medication Sig Discontinue Reason Start Date End Da te UNABLE TO FIND KLRyan Aller-Chelsi 10 MG tablet TAKE ONE TABLET BY MOUTH ONCE DAILY Therapy completed 03/06/2025 triamcinolone (NASACORT) 55 mcg nasal inhaler Administer 2 sprays into each nostril 1 (one) time each day. Therapy completed 07/08/2024 03/06/2025 cetirizine (Aller-Chelsi) 10 mg tablet Take 1 tablet (10 mg total) by mouth 1 (one) time each day. Therapy completed 07/12/2024 03/06/2025 documented as of this encounter Additional Health Concerns Assessment Noted Time PHQ-9 Depression Total Score: 2 08/29/19 25 5:18 PM EDT A fall risk assessment has been complete d for the patient 10/09/2024 2:58 PM EDT documented as of this encounter Care Teams Teleprinter Installer Relationship Specialty Start Date End Date Vargas Giraldo PA [address] [place] [address] PCP - General Internal Medicine 04/24/24 documented as of this encounter
--- NOTE | 2025-03-11 13:40 | MHC.OFFVIS ---
Intake Visit Reasons: follow up after EEG Allergies celecoxib (From Celebrex) Allergy (Severe, Verified 10/27/23 09:56) Numbness nitrofurantoin (From Macrobid) Adverse Reaction (Intermediate, Verified 10/27/23 09:56) Gastrointestinal Upset HPI Comments Details: The patient is a 65-year-old female presenting for evaluation of anxiety, restless legs syndrome, and chronic pain due to osteoarthritis. She reports that her anxiety levels fluctuate, particularly with environmental triggers like noise and social gatherings, and notes that duloxetine is aiding in the management of both anxiety and chronic pain. Her depression is well-managed with prescribed medication. The patient describes a persistent inability to remain still due to restless legs syndrome, a condition experienced over a prolonged period without relief from previous advice to simply halt movements. The restless legs syndrome remains an ongoing concern. There is also a history of chronic pain attributed to osteoarthritis affecting the hips and legs. The condition leads to significant discomfort during walking, and pain relief measures have included cortisone injections and topical treatments. The patient is scheduled for further evaluation, including visits to a specialist and MRI studies, to address the progression and severity of her symptoms. [facility] Medical History (Updated 03/11/25 @ 13:41 by Daniel Malone MD) Surgery, elective Osteoarthritis Chronic headaches GERD (gastroesophageal reflux disease) HLD (hyperlipidemia) Surgical History (Updated 10/27/23 @ 09:47 by Jenna Sanchez RN) History of hysterectomy History of surgery on lower extremity H/O shoulder surgery History of ear surgery Review of Systems Const Details: - Neurological: Reports restless leg movements, denies seizures. - Psychiatric: Reports anxiety and depression, helped by medication. - Musculoskeletal: Reports chronic pain in hips, legs, back, and neck, worsened by movement. - General: Denies additional seizures, reports use of duloxetine for pain and anxiety. Physical Exam Neuro Other: Mental Status: Alert and oriented to person, place, and time. Normal attention. Normal spontaneous speech, fluency, and comprehension. Cranial Nerves: CN II: Visual bond full to confrontation, visual acuity intact. CN III, IV, : Pupils equal, round, reactive to light and accommodation. Extraocular movements are normal. CN V: Facial sensation is normal. CN VII: Facial movements symmetrical. CN VIII: Hearing intact to bedside conversation is normal. CN IX, X: Palate elevates symmetrically. CN XI: Shoulder shrug and head turn symmetrical. CN XII: Tongue midline without atrophy or fasciculations. Extrapyramidal: Full facial expressions and blinking. No rigidity. Movements are appropriate with no tremor or abnormality. Speech: Normal; no dysarthria or tremor. Assessment & Plan Assessment & Plan (1) Alzheimer dementia: Comment: Meds tried for dementia: Donepezil. Memantine [place] at [facility] [place]: WNL LP at [facility] [place] in October 2023: OP 7cm, WBCs 2, RBCs 43, Glu 68, Pro 41.8, IgG ind: ok, OCBs: neg. ATI ratio: AD MRI brain WO at [facility] in Jul 2023: Mod WM changes suggestive of demyelinating disease MRI brain WWO at [facility] in Mar 2019: >20 b/l supratentorial WM lesions, ?demyelinating disease EEG at office in Aug 2019: WNL Code(s): G30.9 - Alzheimer's disease, unspecified; F02.80 - Dementia in other diseases classified elsewhere, unspecified severity, without behavioral disturbance, psychotic disturbance, mood disturbance, and anxiety Category: Medical Qualifiers: Alzheimer's disease onset: early onset Dementia behavioral or psychological symptom: without behavioral, psychotic, or mood disturbance or anxiety Dementia severity: mild Qualified Code(s): G30.0 - Alzheimer's disease with early onset; F02.A0 - Dementia in other diseases classified elsewhere, mild, without behavioral disturbance, psychotic disturbance, mood disturbance, and anxiety Plan Impression: a: Mild multifactorial (vascular plus mild dementia) b: Chronic tension type headaches c: Anxiety Rec: a: Stay active b: Walk a mile or two daily Coding Level of Care Code Est Pt Level 4 (10672) Diagnoses Mild early onset Alzheimer's dementia without behavioral disturbance, psychotic disturbance, mood disturbance, or anxiety G30.0; F02.A0 Alzheimer's disease onset: early onset Dementia behavioral or psychological symptom: without behavioral, psychotic, or mood disturbance or anxiety Dementia severity: mild
--- OUTSIDE RECORDS SUMMARY | 2025-03-11 14:51 | XMS_ITS | Clinical Summary ---
Author Organization [facility] Address [address] [place] [address] Care Team Providers Care Jacquard Lace Weaver Name Role Phone Vargas Giraldo PA-C Primary [...] this topic Medical Devices Implanted Type Area Charge Gang Weigher Device Identifier Shelf Expiration Date Model / Serial / Lot Rechargeable R20 Neurostimulator Axsd-[facility] [id number] - [id number] Implanted:Qty: 1 on 05/30/2023 by Tana Ro MD [place] [facility] [place] and Med N/A: Sacrum [employer] 10/26/2025 [id number] / [id number] / ++Dnu+Disc No Rplc Kit Ld Tined Quad Sns Interstim Medt-Neur [id number] - [id number] Implanted:Qty: 1 on 05/30/2023 by Tana Ro MD at [facility] [place] and Med N/A: Sacrum [employer] 10/11/2025 [id number] / [id number] / Sling Transvaginal Advantage Fit Blue Bsci-Micr [id number] - [id number] Implanted:Qty: 1 on 05/30/2023 by Tana Ro MD at [facility] [place] and Med N/A: Urethra [facility] UROLOGY GYNECOLGY 02/13/2026 [id number] / / [id number] Care Teams Jacquard Lace Weaver Relationship Specialty Start Date End Date Vargas Giraldo, PAMichaelC PCP - General Medical Services 05/26/23
--- OUTSIDE RECORDS SUMMARY | 2025-03-11 14:51 | XMS_ITS | Clinical Summary ---
Author Organization [facility] Address [address] [place] [address] Phone Care Team Providers Care Service Establishment Attendant Name Role Phone Vargas Giraldo Primary Care Provider [phone] Allergies Active Allergy Reactions Criticality Noted Date [...] mouth 2 times daily. - Oral Active atorvastatin (LIPITOR) 20 mg tablet Take [...] each day. 90 tablet 3 5 Active semaglutide (OZEMPIC) 0.25 mg or 0.5 mg (2 mg/3 mL) injection penIndications:N ew onset type 2 diabetes mellitus ([facility] V24, [facility] V28),Obesity (BMI 30-39.9) Inject 0.25 mg under the skin every 7 (seven) days. 3 mL 2 5 Active meloxicam (MOBIC) 15 mg tablet Take 1 Tablet by mouth daily. 4 025 Discontin ued(Reord er) UNABLE TO FIND KLS Aller-Chelsi 10 MG tablet TAKE ONE TABLET BY MOUTH ONCE DAILY 025 Discontin ued(Thera py completed ) triamcinolone (NASACORT) 55 mcg nasal inhaler Administer 2 sprays into each nostril 1 (one) time each day. 10.8 mL 11 5 025 Discontin ued(Thera py completed ) cetirizine (Aller-Chelsi) 10 mg tablet Take 1 tablet (10 mg total) by mouth 1 (one) time each day. 90 tablet 5 025 Discontin ued(Thera py completed ) Active Problems Problem Noted Date Diagnosed Date New onset type 2 diabetes me llitus ([facility] V24, [facility] V28) 03/06/2025 Mild early onset Alzheimer's dementia ([facility] V24, [facility] V28) 08/29/2024 Assessment & Plan (10/09/2024 3:25 [...] 12/17/2018 Obstructive sleep apnea 11/28/2018 Overview (03/20/2024): [facility] Home Sleep Apnea Test: Date 11/26/2018; [...] 06/01/2015 Major depressive disorder, r ecurrent, moderate ([facility] V24, [facility] V28) 06/01/2015 Assessment & Plan (10/09/2024 3:25 PM EDT): Tinnitus of both ears 02/05/2015 Compression fracture of T12 vertebra ([facility] V24, [facility] V28) 01/15/2015 Actinic keratosis 08/18/2009 Overview (03/20/2024): Actinic Keratosis ( pre-cancers followed by Dr. Simmons ) Hyperlipidemia 08/12/2008 Assessment & Plan (10/09/2024 3:25 PM EDT): Chronic tension headaches 04/18/2008 Insomnia 04/18/2008 Encounters Date Type Department Care Team Description 03/06/2025 1:15 PM EDT Office Visit Adult Medicine [address] [phone] Angie Bishop PA New onset type 2 diabetes mellitus ([facility] V24, [facility] V28) (Primary Dx); Obesity (BMI 30-39.9); Mixed hyperlipidemia; Hypothyroidism, unspecified type; Vitamin B12 deficiency; Vitamin D deficiency; Elevated LFTs; Anxiety and depression 02/17/2025 10:55 AM EDT - 02/17/2025 11:59 PM EDT Hospital Encounter Radiology Department [address] [phone] Encounter for screening mammogram for breast cancer Discharge Disposition: Home or Self Care from Last 3 Months Immunizations Immunization Administration Dates Next Due Influenza Quadravalent, MDCK [...] 11/22/2005 PROCEDURE: HISTORICAL COLONOSCOPY; COMMENT: Dr. Buck, [facility]. Minor rectal bleed. Small ulcerated area bx'd. SHOULDER SURGERY PROCEDURE: AK UNLISTED PROCEDURE SHOULDER; COMMENT: bilateral, twice on [...] fibroadeonoma OTHER SURGICAL HISTORY 05/30/2023 N/A PROCEDURE: AK SLING OPERATION STRESS INCONTINENCE; COMMENT: Retropubic miduretheral [...] Record ed Within the last 3 months, prosper w many times did you visit the [...] do you feel lonely or isolated from ose around you? Never 10/08/2024 Food Risk [...] for your loved ones. For example, child life assistant or elderly care for an older [...] Mass Index 30.55 03/06/2025 1:19 PM EDT Plan of Treatment Upcoming Encounters Date Type Department Care Team (Late st Contact Info) Description 03/20/2025 11:30 AM EDT Appointment Radiology Department - [address] [phone] 03/20/2025 12:15 PM EDT Appointment Radiology Department - [address] [phone] 07/17/2025 11:00 AM EST Office Visit Adult Medicine [address] [phone] Angie Bishop PA [address] [place] [address] Health Maintenance Due Date Last Done Comments Diabetes: Annual Retina Eye Exam 01/19/1970 COVID-19 Vaccine (8 - Pfizer risk season) 2025 02/15/2024, 03/14/2023, 03/10/2022, Additional history exists Influenza Vaccine (#1) 2025 , 03/01/2023, 02/23/2022, Additional history exists Diabetes: Annual Urine Albumin-Creatinine Ratio (uACR) 03/06/2025 Diabetes: Blood Sugar Control Test (HGBA1C) 08/17/2025 02/17/2025, 02/09/2024, 02/09/2024 Social Influencers of Health Screening 10/08/2025 10/08/2024 Falls Risk Assessment 10/09/2025 10/09/2024, 024 Medicare Annual Wellness Visit 10/09/2025 10/09/2024 Diabetes: Annual GFR (Glomerular Filtration Rate) 02/17/2026 02/17/2025, 04/26/2024, 02/09/2024, Additional history exists Diabetes: Annual Foot Exam 03/06/2026 03/06/2025 Breast Cancer Screening 02/17/2027 02/18/20, 02/09/2024, 02/09/2024, [...] on patient's age to complete this topic Hepatitis A Vaccines Aged Out No long er eligible based on patient's age to complete this topic Hepatitis B Vaccines Aged Out No long [...] this topic Medical Devices Implanted Type Area Instructional Supervisor Device Identifier Shelf Expiration Date Model / Serial / Lot Rechargeable R20 Neurostimulator Axmt-Manu [id number] - [id number] Implanted:Qty: 1 on 05/30/2023 by Tana Ro MD N/A: Sacrum [employer] 10/26/2025 [id number] / [id number] / ++Dnu+Disc No Rplc Kit Ld Tined Quad Sns Interstim Medt-Neur [id number] - [id number] Implanted:Qty: 1 on 05/30/2023 by Tana Ro MD N/A: Sacrum [employer] 10/11/2025 [id number] / [id number] / Sling Transvaginal Advantage Fit Blue Bsci-Micr [id number] Implanted:Qty: 1 on 05/30/2023 by Tana Ro MD N/A: Urethra [employer]GYNECOL GY 02/13/2026 [id number] / / [id number] Procedures Procedure Name Priority Date/Time Associated Diagnosis Comments EXTERNAL NEUROLOGY REPORT 02/19/2025 CBC WITH AUTO DIFFERENTIAL Routine 02/17/2025 11:16 [...] Major depressive disorder, recurrent, moderate ([facility] V24, [facility] V28) Hyperlipidemia, unspecified Hypothyroidism, unspecified Gastro-esophageal reflux disease without esophagitis HEPATITIS C SCREENING Routine 08/17/2021 COLONOSCOPY Routine 09/07/2020 from Last 3 Months or Most Recently Relevant to Health Maintenance Results * External Neurology Report (02/19/2025) Provider [facility] NEUROLOGY ORDERABLES Fin al Result * Thyroid stimulating hormone with reflex to free t4 and free t3 (02/17/2025 11:16 AM EDT) TSH 2.49 0.40 - 4.00 mcIU/mL LAB CHEMISTRY METHOD 02/17/2025 5:29 PM EDT [facility] Blood Venous blood specimen / Unknown Venipuncture / Unknown 02/17/2025 11:16 AM EDT 02/17/2025 11:16 AM EDT Vargas MONCADA LAB BLOOD ORDERABLES Lori l Result [facility] [address] [place] [address], [place] [phone] * (ABNORMAL) Lipid panel with reflex to direct LDL (02/17/2025 11:16 AM EDT) [facility] Cholesterol 162 0 - 200 mg/dL LAB CHEMISTRY METHOD 02/17/2025 4:40 PM EDT [facility] Triglycerides 248(H) 0 - 150 mg/dL LAB CHEMISTRY METHOD 02/17/2025 4:40 PM EDT [facility] HDL 46 >=40 mg/dL LAB CHEMISTRY METHOD 02/17/2025 4:40 PM EDT [facility] LDL Calculated 66 0 - 100 mg/dL LAB CHEMISTRY METHOD 02/17/2025 4:40 PM EDT [facility] Comment:Estimated LDL Calcul ated using equation: Total cholesterol - HDL cholesterol - (Triglycerides/5) VLDL Cholesterol Celso 49.6 mg/dL LAB CHEMISTRY METHOD 02/17/2025 4:40 PM EDT [facility] Non HDL Chol. (LDL+VLDL) 116 <145 mg/dL LAB CHEMISTRY METHOD 02/17/2025 4:40 PM EDT [facility] Chol/HDL Ratio 3.5 0.0 - 4.4 LAB CHEMISTRY METHOD 02/17/2025 4:40 PM EDT [facility] Blood Venous blood specimen / Unknown Venipuncture / Unknown 02/17/2025 11:16 AM EDT 02/17/2025 11:16 AM EDT us Vargas MONCADA LAB BLOOD ORDERABLES Lori l Result [facility] [address] [place] [address], [place] [phone] * CBC auto differential (02/17/2025 11:16 AM EDT) [facility] WBC 9.1 4.8 - 10.8 K/mcL LAB HEMETOLOGY METHOD 02/17/2025 12:40 PM EDT [facility] RBC 4.10 3.80 - 4.80 M/mcL LAB HEMETOLOGY METHOD 02/17/2025 12:40 PM EDT [facility] Hemoglobin 12.5 11.5 - 16.0 g/dL LAB HEMETOLOGY METHOD 02/17/2025 12:40 PM EDT [facility] Hematocrit 39.1 35.0 - 47.0 % LAB HEMETOLOGY METHOD 02/17/2025 12:40 PM EDT [facility] MCV 95.6 79.0 - 98.0 FL LAB HEMETOLOGY METHOD 02/17[facility]2025 12[facility] MCH 30.6 27.0 - 32.0 pcg LAB HEMETOLOGY METHOD 02/17/2025 12:40 PM EDT [facility] MCHC 32.0 32.0 - 37.0 g/dL LAB HEMETOLOGY METHOD 02/17/2025 12:40 PM [facility] RDW 12.7 11.0 - 15.0 % LAB HEMETOLOGY METHOD 02/17/2025 12:40 PM EDT [facility] Platelets 332 130 - 400 K/mcL LAB HEMETOLOGY METHOD 02/17/2025 12:40 PM EDT [facility] MPV 10.7 7.0 - 11.0 FL LAB HEMETOLOGY METHOD 02/17/2025 12:40 PM EDT [facility] NRBC 0.0 <1.0 % LAB HEMETOLOGY METHOD 02/17/2025 12:40 PM EDT [facility] NRBC Absolute 0.00 <0.10 K/mcL LAB HEMETOLOGY METHOD 02/17/2025 12:40 PM EDT [facility] Neutrophils Relative 64.9 % LAB HEMETOLOGY METHOD 02/17/2025 12:[facility] Lymphocytes Relative 27.5 % LAB [...] [facility] LAB BLOOD ORDERABLES Lori l Result [facility] [address] [place] [address], [place] [phone] * (ABNORMAL) Hemoglobin A1c (02/17/2025 11:16 AM EDT) [facility] Hemoglobin A1C 6.8(H) <6.5 % LAB CHEMISTRY METHOD 02/18/2025 9:23 AM EDT [facility] Mean Bld Glu Estim. 148 mg/dL LAB CHEMISTRY METHOD 02/18/2025 9:23 AM EDT [facility] Blood Venous blood specimen / Unknown Venipuncture / Unknown 02/17/2025 11:16 AM EDT 02/17/2025 11:16 AM EDT Vargas Giraldo [place] LAB BLOOD ORDERABLES Lori l Result Performing Organization Address [facility]/ZIP Co de Phone Number [facility] [address] [place] [address], [place] [phone] * Vitamin B12 (02/17/2025 11:16 AM EDT) [facility] Vitamin B-12 449 250 - 900 pcg/mL LAB CHEMISTRY METHOD 02/17/2025 7:14 PM EDT [facility] Blood Venous blood specimen / Unknown Venipuncture / Unknown 02/17/2025 11:16 AM EDT 02/17/2025 11:16 AM EDT [facility] Hansel Giraldo [place] LAB BLOOD ORDERABLES Lori l Result Performing Organization Address [facility]/ZIP Co de Phone Number [facility] [address] [place] [address], [place] [phone] * (ABNORMAL) Comprehensive metabolic panel (02/17/2025 11:16 AM EDT) Sodium 138 133 - 145 mmol/L LAB [...] LAB CHEMISTRY METHOD 02/17/2025 4:44 PM EDT [facility] Alkaline Phosphatase 104 42 - 121 unit/L LAB CHEMISTRY METHOD 02/17/2025 4:44 PM EDT [facility] Total Protein 7.0 6.0 - 8.0 g/dL LAB CHEMISTRY METHOD 02/17/2025 4:44 PM EDT [facility] Albumin 3.7 3.2 - 5.0 g/dL LAB CHEMISTRY METHOD 02/17/2025 4:44 PM EDT [facility] Total Bilirubin 0.4 0.0 - 1.4 mg/dL LAB CHEMISTRY METHOD 02/17/2025 4:44 PM EDT [facility] Blood Venous blood specimen / Unknown Venipuncture / Unknown 02/17/2025 11:16 AM EDT 02/17/2025 11:16 AM EDT Vargas MONCADA LAB BLOOD ORDERABLES Olri l Result [facility] [address] [place] [address], [place] [phone] * MG Mammo Digital Screening w Ketan bilat (02/17/2025 11:05 AM EDT) Anatomical Region Laterality Modality Breast Bilateral Mammography 02/18/2025 2:32 PM EDT Impressions 02/18/2025 2:41 PM EDT Benign. BI-RADS CATEGORY: 2 - BENIGN RECOMMENDATION: Screening bilateral mammogram is recommended in 1 year. Mammo Location: [facility], [address] [place] [address], [id number], . -------- FINAL REPORT -------- Dictated By: Alpa Betts Dictated Date: 02/18/2025 14:32 ET Assigned Physician: Alpa Betts Reviewed and Electronically Signed By: Alpa Betts Signed Date: 02/18/2025 14:41 ET Workstation ID: [id number] Transcribed By: Self Edit Transcribed Date: 02/18/2025 [...] is recommended in 1 year. Mammo Location: [facility], [address] [place] [address], [address], . -------- FINAL REPORT -------- Dictated By: Alpa Betts Dictated Date: 02/18/2025 14:32 ET Assigned Physician: Alpa Betts Reviewed and Electronically Signed By: Alpa Betts Signed Date: 02/18/2025 14:41 ET Workstation ID: [id number] Transcribed By: Self Edit Transcribed Date: 02/18/2025 [...] Relevant to Health Maintenance Insurance MEDICARE [facility] Care Teams Service Establishment Attendant Relationship Specialty Start Date End Date Vargas Giraldo PA [address] [place] [address] PCP - General Internal Medicine 04/24/24
--- OUTSIDE RECORDS SUMMARY | 2025-03-11 14:51 | XMS_ITS | Patient Health Record ---
Author Organization [facility] Address [address] [address] Support Name Relationship Address Phone KINGSTON BOURGEOIS Guarantor Unknown [phone] Reason For Referral No Information Medications Medication SIG (Take, Route, Fr equency, Duration) Notes Start Date End Date Status Tylenol Arthritis Pain ORAL daily; Duration: -3 [facility]- Active VESIcare 5MG 1 ORAL daily; Duration: -3 [facility]- 06/11/2012 Active Calcium-Carb 600 + D 1 ORAL daily; Duration: -3 [facility]- Active Nabumetone 500MG 2 ORAL daily; Duration: -3 [facility]- 2010 Active Levoxyl 75MCG 1 ORAL DAILY; Duration: -3 [facility]- 2 Active Simvastatin 40MG 1 ORAL daily; Duration: -3 [facility]- 2010 Active PriLOSEC OTC 40MG 1 ORAL twice daily; Duration: -3 [facility]- 06/11/2012 Active Problems Problem Type SNOMED Code ICD Code Onset Dates Problem Status W/U Status Risk Notes Problem Esophageal reflux (600431382) Esophageal reflux (530.81) Active confirmed Major Problem Irritable bowel syndrome (18343129) Irritable bowel syndrome (564.1) Active confirmed Major Problem Menopausal symptom (01170348) Symptomatic menopausal or female climacteric states (627.2) Active confirmed Diag Problem Osteoarthritis (808738586) Osteoarthrosis, unspecified whether generalized or localized, unspecified site (715.90) Active confirmed Major Problem Headache (29002884) Headache (784.0) Active confirmed Major Problem Urinary incontinence (127208313) Unspecified urinary incontinence (788.30) Active confirmed Major Problem Gynecological examination normal (274792625576253) Routine gynecological examination (V72.31) Active confirmed Major Problem Exercises teaching, guidance, and counseling (409775785) Exercise counseling (V65.41) Active confirmed Diag Problem Screening for malignant neoplasm of colon (720091034) Special screening for malignant neoplasms, colon (V76.51) Active confirmed Major Plan Of Treatment No Information Insurance Providers Payer Name Payer Address Payer Phone Subscriber Number Group Number Insured Name Patient Relationship to Insured Coverage Start Date Coverage End Date [employer] [address] [address] [place] [address] [id number] K[place]STON BOURGEOIS Self - patient is the insured [facility] [address] [place] [address] [id number] KINGSTON BOURGEOIS Self - patient is the insured
== END ==
LOC: HO.HSM 13:34
PROVIDERS: PCP Physician Assistant Medical; Visit Provider Psychiatry & Neurology Neurology
DX: G30.0 Alzheimer's disease with early onset (principal); F02.A0 Dementia in other diseases classified elsewhere, mild, without behavioral disturbance, psychotic disturbance, mood disturbance, and anxiety
CPT/HCPCS: 99214

== ENCOUNTER → 2025-03-11 13:33 | Outpatient (BNVA) | payer MEDICARE, SELFPAY | PROVIDERS: PCP Physician Assistant Medical; Visit Provider Psychiatry & Neurology Neurology | DX: G30.0 Alzheimer's disease with early onset (principal); F02.A0 Dementia in other diseases classified elsewhere, mild, without behavioral disturbance, psychotic disturbance, mood disturbance, and anxiety | CPT/HCPCS: 99212 ==